=== PATIENT | female | born 1980 | race Caucasian/White ===

== ENCOUNTER 2024-01-27 14:28 | Emergency (ER) | payer MEDICAID, SELFPAY ==
[2024-01-27 14:29] VITALS: BMI 31.5
[2024-01-27 15:02] VITALS: BP 153/87; PULSE 94; RESP 20; TEMP 36.9; O2SAT 97
--- NOTE | 2024-01-27 15:29 | PD.EDPSYCH ---
ED Psych RME/HPI General Chief Complaint: Psychiatric Symptoms Stated Complaint: NEED MED REFILL Time Seen by Provider: 01/27/24 14:36 Arrival date/time: 01/27/24 14:28 43-year-old female with significant psychiatric history who was recently released from [facility] presents to the emergency department today requesting refill on her medication patient has a list of her medications and reports that she was just given a course of 7 days worth of medications which she finished yesterday patient reports that she was released January 18 patient reports she does not have an appointment for follow-up for at least another couple weeks Limitations: no limitations Related Data Previous Rx's ?Medication ?Instructions ?Recorded lithium carbonate 300 mg capsule 300 mg PO BID 30 days #60 caps 01/27/24 metformin 500 mg tablet 500 mg PO BID #60 tabs 01/27/24 olanzapine 10 mg tablet 10 mg PO QAM #30 tabs 01/27/24 olanzapine 20 mg tablet 20 mg PO QPM #30 tabs 01/27/24 pantoprazole 20 mg tablet,delayed 20 mg PO QDAY #30 tabs 01/27/24 release prazosin 5 mg capsule 5 mg PO QPM #30 caps 01/27/24 quetiapine 50 mg tablet 50 mg PO ONCE HS #30 tabs 01/27/24 Allergies Allergy/AdvReac Type Severity Reaction Status Date / Time Penicillins Allergy Unknown Verified 01/27/24 14:33 Review of Systems Review of Systems Systems Reviewed: All systems reviewed, normal except as documented Constitutional Constitutional: Reports system reviewed and no additional complaints, except as documented, Denies fever(s) and Denies headache(s) Eyes Eyes: Reports system reviewed and no additional complaints, except as documented and Denies blurry vision ENT Ears, Nose, Mouth, and Throat: Reports system reviewed and no additional complaints, except as documented, Denies headache(s), Denies nasal congestion and Denies nasal discharge Cardiovascular Cardiovascular: Reports system reviewed and no additional complaints, except as documented, Denies chest pain and Denies dyspnea Respiratory Respiratory: Reports system reviewed and no additional complaints, except as documented, Denies chest congestion, Denies cough and Denies dyspnea Gastrointestinal Gastrointestinal: Reports system reviewed and no additional complaints, except as documented and Denies abdominal pain Integumentary/Breasts Skin/Breast: Reports system reviewed and no additional complaints, except as documented and Denies rash Neurologic Neurologic: Reports system reviewed and no additional complaints, except as documented, Reports as per HPI, Denies confusion and Denies headache(s) Psychiatric Psychiatric: Reports system reviewed and no additional complaints, except as documented, Denies confusion, Denies homicidal ideation, Denies panic attacks, Denies suicidal ideation, Denies tactile hallucinations and Denies visual hallucinations Past Medical History Past Medical History CARDIAC: Positive Hypercholesterolemia; Negative Cardiac Disorders or Congestive Heart Failure RESPIRATORY: Positive Asthma; Negative Chronic Obstructive Pulmonary Disease (COPD) GENITOURINARY: Negative Renal Disease ENDOCRINE: Negative Diabetes Mellitus Type 1 or Diabetes Mellitus Type 2 HEMATOLOGIC: Negative Sickle Cell Disease PSYCHO/SOCIAL: Positive Schizophrenia, Bipolar Disorder, Depression and Anxiety Social History SMOKING STATUS: Current every day smoker ED Exam General Limitations: Present no limitations General appearance: Present alert and in no apparent distress Head Head exam: Present atraumatic, normocephalic and normal inspection Eye Eye exam: Present normal appearance, PERRL and EOMI; Absent conjunctival injection ENT ENT exam: Present normal exam, normal oropharynx and mucous membranes moist Neck Neck exam: Present normal inspection, full ROM and trachea midline Chest Chest inspection: Present normal inspection and symmetric chest wall rise Respiratory Respiratory exam: Present normal lung sounds bilaterally; Absent respiratory distress Cardiovascular Cardiovascular exam: Present regular rate, normal rhythm and normal heart sounds Abdominal Exam Abdominal exam: Present soft and normal bowel sounds; Absent distention, tenderness, guarding, rebound or rigidity Extremities Exam Extremities exam: Present normal inspection and full ROM Back Exam Back exam: Present normal inspection and full ROM Neurological Exam Neurological exam: Present alert, oriented X3, CN II-XII intact, normal gait and reflexes normal; Absent motor sensory deficit Psychiatric Psychiatric exam: Present normal affect and normal mood; Absent depressed, agitated, anxious, flat affect, manic, homicidal ideation or suicidal ideation Skin Skin exam: Present warm, dry, intact and normal color Course Quality Measures none Vital Signs Vital signs: Vital Signs Temperature 98.4 F 01/27/24 15:02 Pulse Rate 94 01/27/24 15:02 Respiratory Rate 20 01/27/24 15:02 Blood Pressure 153/87 H 01/27/24 15:02 Pulse Oximetry (%) 97 01/27/24 15:02 Oxygen Delivery Method Room Air 01/27/24 15:02 O2 saturation 97% room air within normal limits Psych MDM Narrative MDM Narrative:: 43-year-old female with significant psychiatric history who was recently released [facility] presents to the emergency department today requesting refill on her medication patient has a list of her medications and reports that she was just given a course of 7 days worth of medications which she finished yesterday patient reports that she was released January 18 patient reports she does not have an appointment for follow-up for at least another couple weeks Patient given her medication list I reviewed her medication list and refilled her medications as requested Patient instructed to follow-up with mental health and primary care doctor At time of discharge patient reports no suicidal homicidal ideations patient is thankful for the care Patient discharged home in no distress to follow-up with primary care doctor in the next 24 to 48 hours and for any worsening symptoms to return to the ER immediately Patient data External records reviewed:: [facility] previous records Clinical information provided by:: patient Social determinants that could affect healthcare access:: none Patient has the following chronic illnesses:: See history How is presenting disease/condition affected by chronic disease/condition?: caused by Evaluation data The following diagnostics were reviewed and interpreted by me:: other (specify) (N/A) Lab and/or radiology exams considered but not ordered:: Not indicated Interpretation Summary: Not indicated Medications / Prescriptions Medications or Prescriptions considered but not ordered:: Given Medication administrations:: Given Consultations Consultation(s) initiated? (list below): No Diagnosis Psych Differential Diagnosis: acute psychosis, chronic schizophrenia, suicidal ideation, bipolar disorder, drug-induced psychotic disorder, acute anxiety and other (Medication refill) Most likely diagnosis given after review of the tests above:: Medication refill Admission Indicated Admission indicated?: not indicated Admission Request Was there a request for admission?: No Disposition Plan Disposition Plan: Discharge Discharge Attestation Discharge Attestation: The patient and all family members were given an opportunity to ask questions and understood the discharge instructions. Discharge instructions specifically effects, indications for sooner follow up or return to the emergency department, and the expected course of current diagnosis. Patient condition: Stable Discharge Plan Plan Patient Disposition: HOME (Self Care) Disposition Comment: Stable Prescriptions/Referrals Prescriptions/Med Rec: New olanzapine 20 mg tablet 20 mg PO QPM Qty: 30 0RF olanzapine 10 mg tablet 10 mg PO QAM Qty: 30 0RF lithium carbonate 300 mg capsule 300 mg PO BID 30 Days Qty: 60 0RF metformin 500 mg tablet 500 mg PO BID Qty: 60 0RF pantoprazole 20 mg tablet,delayed release (DR/EC) 20 mg PO QDAY Qty: 30 0RF quetiapine 50 mg tablet 50 mg PO ONCE HS Qty: 30 0RF prazosin 5 mg capsule 5 mg PO QPM Qty: 30 0RF Referrals: Rosangela Castro PA-C [Primary Care Provider] - In 1 week Problem List Clinical Impression: Psychiatric disorder, Medication refill Patient/Caregiver Discharge Instructions Education Materials: [facility] Additional Instructions: Please follow up with your primary care doctor in the next 24-48hrs for any worsening symptoms return here immediately Print Language: Norwegian Stand Alone Forms: Tessie Award Info., Patient Portal Info Letter PA/CANDLE WRAPPING MACHINE OPERATOR Supervising Physician PA/CANDLE WRAPPING MACHINE OPERATOR Supervising Physician: Dr Canales
== END 2024-01-27 15:42 | disposition home or self-care (01) ==
PROVIDERS: Emergency Provider Emergency Medicine; PCP Physician Assistant
DX: F99 Mental disorder, not otherwise specified (principal); Z76.0 Encounter for issue of repeat prescription
CPT/HCPCS: 96127; 99281

== ENCOUNTER 2024-07-27 16:18 | Emergency (ER) | payer MEDICAID, SELFPAY ==
[2024-07-27 16:19] VITALS: BMI 35.6
[2024-07-27 17:05] VITALS: BP 133/85; PULSE 102; RESP 18; TEMP 37.1; O2SAT 97
--- NOTE | 2024-07-27 17:05 | XR_ITS ---
Examination: CT brain head without contrast. 2-D sagittal coronal reconstructions Date and time of exam:July 27, 2024 1825 hours Comparison December 31, 2023 INDICATIONS: Headaches blackouts sharp pain in head today CTDI: vol (mGy):2.6 DLP: (mGycm):1051 Technique: Multiple CT axial sections of the brain have been obtained, 5 mm slice thickness. Contrast has not been administered. 2-D sagittal, coronal reconstructions have been obtained Low dose protocols were performed. One or more of the following dose reduction techniques were used; automated exposure control, adjustment of the mA and/or KV according to patient size, use of iterative reconstruction technique. Findings: No significant ventricular enlargement. Intra-axial or extra-axial hemorrhage density is not seen. No mass effect or midline shift Basal cisterns are not remarkable. Fourth ventricle is midline. Cranial vault intact. Impression: Negative for acute hemorrhage, mass effect or midline shift Acute left maxillary sinusitis
--- NOTE | 2024-07-27 17:05 | EKG_ITS ---
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
--- NOTE | 2024-07-27 17:06 | PD.EDRME ---
Rapid Medical Screening Exam RME Arrival date/time: 07/27/24 16:18 43-year-old female presents Emergency Department today for complaint of upper abdominal pain, headache, dizziness and chest pain Chief Complaint: General Adult/Misc Complain Time Seen by Provider: 07/27/24 16:25 Vital signs: Vital Signs Temperature 98.7 F 07/27/24 17:05 Pulse Rate 102 H 07/27/24 17:05 Respiratory Rate 18 07/27/24 17:05 Blood Pressure 133/85 H 07/27/24 17:05 Pulse Oximetry (%) 97 07/27/24 17:05 Oxygen Delivery Method Room Air 07/27/24 17:05
[2024-07-27] MEDS: FAMOTIDINE 20 MG TABLET 40 MG PO (17:45)
[2024-07-27 18:17] LABS: Basophils # (Auto) 0.1 Thou/mm3 (0.0-0.2); Basophils % (Auto) 1 % (0-2.5); Eosinophils # (Auto) 0.6 Thou/mm3 (0.0-0.5); Eosinophils % (Auto) 4 % (0-10); Hematocrit 39.6 % (36.0-46.0); Hemoglobin 13.8 g/dL (12.0-16.0); Immature Granulocytes % (Auto) 0 % (0-0); Immature Granulocytes Auto 0.05 Thou/mm3 (0.00-0.00); Lymphocytes % (Auto) 29 % (10-50); Mean Corpuscular HGB Conc 34.8 g/dl (31.0-37.0); Mean Corpuscular Hemoglobin 30.3 pg (25.0-35.0); Mean Corpuscular Volume 87 fL (80-100); Monocytes # (Auto) 0.9 Thou/mm3 (0.0-0.8); Monocytes % (Auto) 7 % (0-12); Neutrophils # (Auto) 8.1 Thou/mm3 (1.8-7.7); Neutrophils % (Auto) 59 % (37-80); Nucleated Red Blood Cell % 0 /100 WBC (0); Platelet Count 421 Thou/mm3 (140-440); RDW Standard Deviation 42.3 fL (36.4-46.3); Red Blood Count 4.55 Miln/mm3 (4.00-5.20); White Blood Count 13.7 Thou/mm3 (3.6-11.0)
[2024-07-27 18:20] LABS: Alanine Aminotransferase 36 U/L (10-49); Albumin, Serum 4.4 gm/dL (3.5-5.0); Albumin/Globulin Ratio 1.5 (1.2-2.2); Alkaline Phosphatase 76 U/L (46-116); Anion Gap 6 (7-16); Aspartate Amino Transferase 28 U/L (0-34); BUN/Creatinine Ratio 8 Ratio (12-20); Bilirubin,Total 0.2 mg/dL (0.3-1.2); Blood Urea Nitrogen 7 mg/dL (9-23); Calcium 9.3 mg/dL (8.3-10.6); Calcium (Corrected) 9.3 mg/dL (8.5-10.1); Carbon Dioxide 24.1 mMol/L (20.0-31.0); Chloride 108 mMol/L (98-107); Creatinine (Component) 0.9 mg/dL (0.6-1.3); Estimated Creatinine Clearance 115.5 mL/min (>60); Globulin 2.9 gm/dL (2.3-3.5); Glucose 91 mg/dL (74-106); Lipase 32 U/L (12-53); Osmolality,Calculated 273 (275-295); Potassium 3.9 mMol/L (3.4-5.1); Sodium 138 mMol/L (136-145); Total Protein 7.3 gm/dL (5.7-8.2); Troponin I < 0.002 ng/mL (0.0-0.045); eGFR > 60 See Note
[2024-07-27 18:21] LABS: Collection Type, Urine Clean Catch; Squamous Epithelial Cell,Urine 0 /hpf (0-5)
[2024-07-27 18:32] LABS: Bilirubin,Urine Negative (Negative); Blood,Urine Negative (Negative); Clarity,Urine Clear (Clear/Hazy); Color,Urine Colorless (Lt Yel-Yel); Culture Indicated,Urine Not Indicated; Glucose, Urine Negative (Negative); Ketones,Urine Negative (Negative); Leukocyte Esterase,Urine Negative (Negative); Nitrite,Urine Negative (Negative); PH,Urine 6.5 (5.0-7.0); Protein,Urine Negative (Neg - Trace); RBC,Urine 1 /hpf (0-3); Specific Gravity,Urine 1.008 (1.001-1.035); Urobilinogen,Urine Negative mg/dL (0.0-1.0); WBC,Urine 1 /hpf (0-5)
[2024-07-27 18:37] LABS: HCG Qualitative,Urine Negative
[2024-07-27 18:40] LABS: Amphetamine/Methamp Scrn,U Negative (Negative); Barbiturate Screen,Urine Negative (Negative); Benzodiazepines Screen,Urine Negative (Negative); Benzoylecgonine Screen, Ur Negative (Negative); Fentanyl Screen,Urine Negative (Negative); Opiate Screen,Urine Negative (Negative); THC Screen,Urine Negative (Negative)
--- NOTE | 2024-07-27 20:37 | PD.EDHA ---
ED Headache RME/HPI General Chief Complaint: General Adult/Misc Complain Stated Complaint: BAD INDIGESTION; BLACKING OUT, SHARP PAIN IN HEAD Time Seen by Provider: 07/27/24 16:25 Arrival date/time: 07/27/24 16:18 RME / HPI RME / HPI Narrative: 07/27/24 16:18 43-year-old female presents Emergency Department today for complaint of upper abdominal pain, headache, dizziness and chest pain DR. JASON MAIN ED EVALUATION: 43 y/o female with Hx of Vertigo, Hypercholesterolemia, Schizophrenia, Bipolar Disorder, Depression and Anxiety presents to ED c/o intermittent sharp head pain, pressure behind the eyes, and blacking out x 6 months. She states that her eyesight goes black and dark. Her PCP has been treating her with Reglan with no relief. Patient also reports almost drowning today due to the blacking out. Denies tunnel vision, drug use, and alcohol consumption. Patient reports an allergy to Penicillin. No other concerns or complaints expressed at this time. Related Data Previous Rx's ?Medication ?Instructions ?Recorded metformin 500 mg tablet 500 mg PO BID #60 tabs 01/27/24 olanzapine 10 mg tablet 10 mg PO QAM #30 tabs 01/27/24 olanzapine 20 mg tablet 20 mg PO QPM #30 tabs 01/27/24 pantoprazole 20 mg tablet,delayed 20 mg PO QDAY #30 tabs 01/27/24 release prazosin 5 mg capsule 5 mg PO QPM #30 caps 01/27/24 quetiapine 50 mg tablet 50 mg PO ONCE HS #30 tabs 01/27/24 Allergies Allergy/AdvReac Type Severity Reaction Status Date / Time Penicillins Allergy Unknown Verified 07/27/24 16:22 Review of Systems Review of Systems Systems Reviewed: All systems reviewed, normal except as documented Past Medical History Past Medical History CARDIAC: Positive Hypercholesterolemia RESPIRATORY: Positive Asthma PSYCHO/SOCIAL: Positive Schizophrenia, Bipolar Disorder, Depression and Anxiety Social History SMOKING STATUS: Current every day smoker ED Exam Narrative Physical exam: GEN. APPEARANCE: The patient is alert awake oriented X-3 in no distress, lying down comfortably, does not look ill/toxic. Patient has good eye contact. Patient is cooperative. VITALS: All vitals were reviewed and the pulse ox is 97% on room air which is normal according to my interpretation. HEENT: Normocephalic, atraumatic. Pupils are equal and reactive. Occular movement intact and painless. Right eye pressure of 21. Left eye pressure of 18. Cornea not hazy, no conjunctival injection. Oral mucosa is moist. Patent Nares NECK: Supple, nontender, no thyromegaly, no meningismus, no JVD CHEST: Symmetrical, atraumatic, and with equal expansion , Nontender on palpation no deformity and no crepitus. CARDIOVASCULAR: Heart regular rhythm no murmur or gallop rub or extra beats. LUNGS: Clear to auscultation bilaterally with symmetrical chest rise. No laboring tachypnea or wheezing. No intercostal subcostal retraction. No rales and no rhonchi. ABDOMEN: Soft, flat, nontender to palpation, no guarding or rebound tenderness. There are no abnormal masses palpated. Active and normal bowel sounds. EXTREMITIES: Nontender. No edema. No cyanosis. Patient is able to move all 4 extremities well, with full ROM and good CSM. SKIN: Warm and dry, no jaundice or rashes noted. NEURO: Patient is WALKER x 4, Cranial nerves II through XII grossly intact. There is no focal neurologic deficits noted. GCS is 15, PNS and COLLAR STAY FUSER TENDER appear grossly intact. PSYCHIATRIC: Patient is in normal mood and affect. Course Quality Measures none Orders Category Date Time Status EKG (ED ONLY) *Do not use* NOW Care 07/27/24 17:[address] head/brain wo con Stat Exams 07/27/24 17:05 Completed EKG (ED Only) Stat Exams 07/27/24 17:05 Draft CBC Stat Lab 07/27/24 17:34 Completed Comprehensive Metabolic Panel Stat Lab 07/27/24 17:34 Completed Creatine Kinase Stat Lab 07/27/24 17:34 Completed Drug Screen,Urine Stat Lab 07/27/24 18:00 Completed HCG Qualitative,Urine Stat Lab 07/27/24 18:00 Completed Lipase Stat Lab 07/27/24 17:34 Completed Troponin I Stat Lab 07/27/24 17:34 Completed UA, C/S IF [Urinalysis, C/S if Indicated] Stat Lab 07/27/24 18:00 Completed Famotidine [Pepcid] Med 07/27/24 17:37 Discontinued 40 mg PO X1 ONE Ringers Lactated 1000 ml [Lactated Ringers] 1,000 ml Med 07/27/24 20:44 Discontinued IV 999 mls/hr Reevaluation(s) Reevaluation #1: Right eye pressure 21. Left eye pressure 18. Time: 23:23 Vital Signs Vital signs: Vital Signs Temperature 98.7 F 07/27/24 17:05 Pulse Rate 102 H 07/27/24 17:05 Respiratory Rate 18 07/27/24 17:05 Blood Pressure 133/85 H 07/27/24 17:05 Pulse Oximetry (%) 97 07/27/24 17:05 Oxygen Delivery Method Room Air 07/27/24 17:05 Headache MDM Narrative MDM Narrative:: Scribe Attestation: Pao Sands, am scribing for and in the presence of Dr. Jason. Provider Notation: Although this document has been carefully reviewed, there may still be some phonetic and other typographical errors.? These errors are purely grammatical due to imperfections in the software program and should not be construed in any way to? compromise the substance of the patient's medical care during this visit. Patient data External records reviewed:: [facility] previous records (Reviewed prior ED records from 01/27/24. Patient was seen for Medication refill.) Clinical information provided by:: patient Social determinants that could affect healthcare access:: mental health Patient has the following chronic illnesses:: Hypercholesterolemia, Asthma, Schizophrenia, Bipolar Disorder, Depression and Anxiety How is presenting disease/condition affected by chronic disease/condition?: exacerbated by Evaluation data The following diagnostics were reviewed and interpreted by me:: lab results, radiology exam(s) and EKG tracing(s) (EKG done at 17:07, sinus rhythm, rate of 91, normal intervals, normal axis, no acute ischemia.) Lab and/or radiology exams considered but not ordered:: None Interpretation Summary: RADIOLOGY Haed CT: Findings: No significant ventricular enlargement. Intra-axial or extra-axial hemorrhage density is not seen. No mass effect or midline shift Basal cisterns are not remarkable. Fourth ventricle is midline. Cranial vault intact. Impression: Negative for acute hemorrhage, mass effect or midline shift Acute left maxillary sinusitis Medications / Prescriptions Medications or Prescriptions considered but not ordered:: None Medication administrations:: Medication Administration History Discontinued Medications Famotidine (Famotidine 20 Mg Tablet) 40 mg PO X1 ONE Stop: 07/27/24 17:38 Last Admin: 07/27/24 17:45 Dose: 40 mg Documented By: LISA Lactated Ringer's (Lactated Ringers) 1,000 mls @ 999 mls/hr IV .Q1H1M ONE Stop: 07/27/24 21:44 Last Infusion: 07/27/24 22:06 Dose: Infused Documented By: Admin: 07/27/24 21:01 Dose: 999 mls/hr Documented By: REGI See above if any Consultations Consultation(s) initiated? (list below): No Diagnosis Differential diagnosis headache: migraine, tension headache, subarachnoid hemorrhage, headache, meningitis, sinusitis and postconcussion syndrome Most likely diagnosis given after review of the tests above:: Syncope, Headache Admission Indicated Admission indicated?: not indicated Explain why admission is indicated or not indicated:: Patient does not meet admission criteria. Admission Request Was there a request for admission?: No Disposition Plan Disposition Plan: Discharge Discharge Attestation Discharge Attestation: The patient and all family members were given an opportunity to ask questions and understood the discharge instructions. Discharge instructions specifically effects, indications for sooner follow up or return to the emergency department, and the expected course of current diagnosis. Patient condition: Stable Discharge Plan Plan Patient Disposition: HOME (Self Care) Prescriptions/Referrals Prescriptions/Med Rec: No Action olanzapine 20 mg tablet 20 mg PO QPM Qty: 30 0RF olanzapine 10 mg tablet 10 mg PO QAM Qty: 30 0RF metformin 500 mg tablet 500 mg PO BID Qty: 60 0RF pantoprazole 20 mg tablet,delayed release (DR/EC) 20 mg PO QDAY Qty: 30 0RF quetiapine 50 mg tablet 50 mg PO ONCE HS Qty: 30 0RF prazosin 5 mg capsule 5 mg PO QPM Qty: 30 0RF Referrals: Rosangela Castro PA-C [Primary Care Provider] - In 1 week Mounika Jason MD [Emergency Provider] - In 1 week Problem List Clinical Impression: Headache, Syncope Patient/Caregiver Discharge Instructions Other Activity Instructions:: please follow up with your primary care doctor request an appointment to see an automatic beading lathe operator as well as a neurologist. Your intraocular pressures today were normal. CT scan and labs were reassuring. Education Materials: Causes of Syncope Print Language: Czech Stand Alone Forms: Tessie Award Info., Patient Portal Info Letter
[2024-07-27] MEDS: RINGERS LACTATED 1000 ML 1,000 ML 999 ML IV (21:01)
[2024-07-27 21:15] LABS: Creatine Kinase 156 U/L (34-171)
== END 2024-07-27 23:48 | disposition home or self-care (01) ==
PROVIDERS: Nurse Practitioner Primary Care; Emergency Provider Emergency Medicine; PCP Physician Assistant
DX: R51.9 Headache, unspecified (principal); F20.9 Schizophrenia, unspecified; E78.00 Pure hypercholesterolemia, unspecified; F31.9 Bipolar disorder, unspecified; J01.00 Acute maxillary sinusitis, unspecified
CPT/HCPCS: 36415; 70450; 80053; 80307; 81001; 81025; 82550; 83690; 84484; 85025; 93005; 96360; 99284; J7120; A9270

== ENCOUNTER 2024-08-06 14:43 | Emergency (ER) | payer MEDICAID, SELFPAY ==
[2024-08-06 14:45] VITALS: BP 101/57; PULSE 113; RESP 16; RESP 17; TEMP 36.7; O2SAT 93; O2SAT 97; BMI 35.2
--- NOTE | 2024-08-06 15:26 | EKG_ITS ---
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
--- NOTE | 2024-08-06 16:02 | XR_ITS ---
Examination: AP chest single view TECHNIQUE: AP portable upright chest single view Date and time: August 06, 2024, 1608 hours, comparison March 06, 2023. INDICATIONS: Chest pain and shortness of breath today. FINDINGS: Early bibasilar pneumonia. Subsegmental atelectasis right base. Normal heart size. No pulmonary edema IMPRESSION: Early bibasilar pneumonia
--- NOTE | 2024-08-06 16:02 | PD.EDCHEST ---
ED Chest Pain RME/HPI General Chief Complaint: Chest Pain Stated Complaint: CHEST PAIN Time Seen by Provider: 08/06/24 15:27 Arrival date/time: 08/06/24 14:43 RME / HPI RME / HPI narrative: 43-year-old female patient came in for evaluation regarding substernal chest pain. Onset of symptoms about 3 hours prior to ER visit as sudden onset of substernal chest pain, described as sharp pain, severity moderate. Denies any vomiting denies any shortness of breath denies any cough denies any fever denies any other complaints. Patient went out the house and smoke half of cigarette however the pain is still not letting away. No medication was taken prior to arrival. Related Data Previous Rx's ?Medication ?Instructions ?Recorded metformin 500 mg tablet 500 mg PO BID #60 tabs 01/27/24 olanzapine 10 mg tablet 10 mg PO QAM #30 tabs 01/27/24 olanzapine 20 mg tablet 20 mg PO QPM #30 tabs 01/27/24 pantoprazole 20 mg tablet,delayed 20 mg PO QDAY #30 tabs 01/27/24 release prazosin 5 mg capsule 5 mg PO QPM #30 caps 01/27/24 quetiapine 50 mg tablet 50 mg PO ONCE HS #30 tabs 01/27/24 amoxicillin 875 mg-potassium 1 tab PO BID #14 tabs 08/06/24 clavulanate 125 mg tablet azithromycin 250 mg tablet 250 mg PO QDAY 4 days #4 tabs 08/06/24 (Zithromax) Allergies Allergy/AdvReac Type Severity Reaction Status Date / Time Penicillins Allergy Unknown Verified 08/06/24 15:26 Review of Systems Review of Systems Narrative Review of Systems: Review of system reviewed and within normal limits except mentioned in HPI ED Exam Narrative Physical exam: VITAL SIGNS: Reviewed. GENERAL APPEARANCE: Alert and interactive, follows commands, no acute distress, HEAD AND FACE: Non-traumatic. ENT: PERRL, pink conjunctivitis, eyelid no trauma, Mucous membrane moist. NECK: Supple, nontender, no nuchal rigidity. CHEST: Substernal tenderness, no crepitus, no paradoxical movement, no retractions. LUNGS: Clear, well ventilated, symmetric, no rales, no wheezing, no ronchi, no stridor, good breath sounds bilaterally. HEART: Regular rate, regular rhythm, no murmur, no gallops. ABDOMEN: Soft, positive bowel sounds, nondistended, no guarding, nontender, no rebound, no masses, RECTAL: Deferred. GENITAL: Deferred. NEUROLOGICAL: Gross motor function intact sensory function intact, Appropriate for age. MUSCULOSKELETAL: low back nontender, full range of motion. EXTREMITIES: Nontender, full range of motion. SKIN: Color pink, dry, no rash, no lacerations, no abrasions, no contusions. LYMPHATICS: Deferred. Course Quality Measures none Orders Category Date Time Status EKG (ED ONLY) *Do not use* NOW Care 08/06/24 15:26 Completed EKG (ED Only) Stat Exams 08/06/24 15:26 Draft XR chest 1V Stat Exams 08/06/24 16:02 Completed Alcohol, Urine Stat Lab 08/06/24 16:15 Completed CBC Stat Lab 08/06/24 16:06 Completed Comprehensive Metabolic Panel Stat Lab 08/06/24 16:06 Completed Drug Screen,Urine Stat Lab 08/06/24 16:15 Completed Partial Thromboplastin Time Stat Lab 08/06/24 16:06 Completed Prothrombin Time with INR Stat Lab 08/06/24 16:06 Completed Troponin I Stat Lab 08/06/24 16:06 Completed Urinalysis, C/S if Indicated Stat Lab 08/06/24 16:15 Completed Azithromycin Po [Zithromax PO] Med 08/06/24 17:52 Discontinued 500 mg PO X1 ONE mg Hyd/Al Hyd/Elana Susp [Maalox Susp] Med 08/06/24 16:02 Discontinued 30 ml PO X1 ONE Vital Signs Vital signs: Vital Signs Temperature 98.1 F 08/06/24 14:45 Respiratory Rate 17 08/06/24 14:45 Blood Pressure 101/57 L 08/06/24 14:45 Pulse Oximetry (%) 97 08/06/24 14:45 Oxygen Delivery Method Nasal Cannula 08/06/24 14:45 Chest Pain MDM Narrative MDM Narrative:: 43-year-old female patient came in for evaluation regarding substernal chest pain. Onset of symptoms about 3 hours prior to ER visit as sudden onset of substernal chest pain, described as sharp pain, severity moderate. Denies any vomiting denies any shortness of breath denies any cough denies any fever denies any other complaints. Patient went out the house and smoke half of cigarette however the pain is still not letting away. No medication was taken prior to arrival. EKG as interpreted by me shows sinus rhythm, ventricular rate of 87 bpm, [place] interval was omitted MS, ST segment elevation depression noted. Patient's workup including cardiac workup all came back normal. Chest x-ray showed pneumonia. Patient received Zithromax in the emergency room. Patient appears nontoxic and hemodynamically stable .Decision to discharge the patient. The patient/family was given an opportunity to ask questions and understood their discharge instructions. Discharge instructions specifically included follow up provider and time frame, current and/or new medications and possible side effects, indications for sooner follow up or return to the emergency department, and the expected course of current diagnosis. Patient reports feeling better as well and giving evidence of significant clinical improvement, I believe patient is now a candidate for discharge. Patient data External records reviewed:: None Clinical information provided by:: patient Social determinants that could affect healthcare access:: none Patient has the following chronic illnesses:: Diabetes mellitus chronic smoker How is presenting disease/condition affected by chronic disease/condition?: caused by Evaluation data The following diagnostics were reviewed and interpreted by me:: lab results, radiology exam(s) and EKG tracing(s) Lab and/or radiology exams considered but not ordered:: None Interpretation Summary: see results MDM Medications / Prescriptions Medications or Prescriptions considered but not ordered:: None Medication administrations:: Medication Administration History Discontinued Medications Al Hydrox/Mg Hydrox/Simethicone (Mg Hyd/Al Hyd/Elana (Maalox Reg) Susp 30 Ml Udc) 30 ml PO X1 ONE Stop: 08/06/24 16:03 Last Admin: 08/06/24 16:14 Dose: 30 ml Documented By: MARILOU Azithromycin (Azithromycin 250 Mg Tablet) 500 mg PO X1 ONE Stop: 08/06/24 17:53 Maalox and Zithromax Consultations Consultation(s) initiated? (list below): No Diagnosis Chest Pain Differential Diagnosis: pneumothorax, chest pain and other (Pneumonia) Most likely diagnosis given after review of the tests above:: Chest pain, pneumonia Admission Indicated Admission indicated?: not indicated Admission Request Was there a request for admission?: No Disposition Plan Disposition Plan: Discharge Discharge Attestation Discharge Attestation: The patient was given an opportunity to ask questions and understood the discharge instructions. Discharge instructions specifically effects, indications for sooner follow up or return to the emergency department, and the expected course of current diagnosis. Patient condition: Stable Discharge Plan Plan Patient Disposition: HOME (Self Care) Discharge Disposition comment: Stable Prescriptions/Referrals Prescriptions/Med Rec: New azithromycin [Zithromax] 250 mg tablet 250 mg PO QDAY 4 Days Qty: 4 0RF Rx Instructions: start on day 2 of therapy amoxicillin-pot clavulanate 875-125 mg tablet 1 tab PO BID Qty: 14 0RF No Action olanzapine 20 mg tablet 20 mg PO QPM Qty: 30 0RF olanzapine 10 mg tablet 10 mg PO QAM Qty: 30 0RF metformin 500 mg tablet 500 mg PO BID Qty: 60 0RF pantoprazole 20 mg tablet,delayed release (DR/EC) 20 mg PO QDAY Qty: 30 0RF quetiapine 50 mg tablet 50 mg PO ONCE HS Qty: 30 0RF prazosin 5 mg capsule 5 mg PO QPM Qty: 30 0RF Referrals: Rosangela Castro PA-C [Primary Care Provider] - In 1 week Problem List Clinical Impression: Chest pain, Pneumonia Patient/Caregiver Discharge Instructions Discharge Activity: activity as tolerated Education Materials: ED Pneumonia (Adult) Additional Instructions: Thank you for the opportunity for serving you today. You are stable for discharged . You are advised to: Follow-up with your PCP in 1 to 2 days Return to ED for worsening of symptoms Increase oral fluids Take medication as prescribed Please try to stop smoking. Print Language: Malagasy Stand Alone Forms: Tessie Award Info., Patient Portal Info Letter NOE/ESTEBAN Supervising Physician NOE/ESTEBAN Supervising Physician: MD Carmen
[2024-08-06 16:14] LABS: Basophils # (Auto) 0.1 Thou/mm3 (0.0-0.2); Basophils % (Auto) 1 % (0-2.5); Eosinophils # (Auto) 0.6 Thou/mm3 (0.0-0.5); Eosinophils % (Auto) 5 % (0-10); Hematocrit 38.5 % (36.0-46.0); Immature Granulocytes % (Auto) 0 % (0-0); Immature Granulocytes Auto 0.04 Thou/mm3 (0.00-0.00); Lymphocytes # (Auto) 3.7 Thou/mm3 (1.0-4.8); Lymphocytes % (Auto) 32 % (10-50); Mean Corpuscular HGB Conc 33.8 g/dl (31.0-37.0); Mean Corpuscular Volume 89 fL (80-100); Monocytes # (Auto) 0.8 Thou/mm3 (0.0-0.8); Monocytes % (Auto) 7 % (0-12); Neutrophils # (Auto) 6.6 Thou/mm3 (1.8-7.7); Neutrophils % (Auto) 56 % (37-80); Nucleated Red Blood Cell % 0 /100 WBC (0); Platelet Count 382 Thou/mm3 (140-440); RDW Standard Deviation 42.5 fL (36.4-46.3); Red Blood Count 4.34 Miln/mm3 (4.00-5.20); White Blood Count 11.9 Thou/mm3 (3.6-11.0)
[2024-08-06] MEDS: MG HYD/AL HYD/SIME (Maalox Reg) SUSP 30 ML UDC PO (16:14)
[2024-08-06 16:36] LABS: Collection Type, Urine Clean Catch; Squamous Epithelial Cell,Urine 0 /hpf (0-5)
[2024-08-06 16:39] LABS: Alanine Aminotransferase 36 U/L (10-49); Albumin, Serum 3.9 gm/dL (3.5-5.0); Albumin/Globulin Ratio 1.3 (1.2-2.2); Alkaline Phosphatase 67 U/L (46-116); Anion Gap 6 (7-16); Aspartate Amino Transferase 25 U/L (0-34); BUN/Creatinine Ratio 6 Ratio (12-20); Bilirubin,Total 0.3 mg/dL (0.3-1.2); Blood Urea Nitrogen < 5 mg/dL (9-23); Calcium (Corrected) 9.1 mg/dL (8.5-10.1); Carbon Dioxide 23.6 mMol/L (20.0-31.0); Chloride 109 mMol/L (98-107); Creatinine (Component) 0.9 mg/dL (0.6-1.3); Estimated Creatinine Clearance 114.8 mL/min (>60); Glucose 110 mg/dL (74-106); Osmolality,Calculated 275 (275-295); Potassium 3.9 mMol/L (3.4-5.1); Sodium 139 mMol/L (136-145); Total Protein 6.9 gm/dL (5.7-8.2); Troponin I < 0.002 ng/mL (0.0-0.045); eGFR > 60 See Note
[2024-08-06 16:41] VITALS: BP 138/109; RESP 17; TEMP 36.4; O2SAT 98
[2024-08-06 16:45] LABS: Bacteria,Urine Rare; Bilirubin,Urine Negative (Negative); Blood,Urine Negative (Negative); Clarity,Urine Clear (Clear/Hazy); Color,Urine Lt-Yellow (Lt Yel-Yel); Culture Indicated,Urine Not Indicated; Glucose, Urine Negative (Negative); Ketones,Urine Negative (Negative); Leukocyte Esterase,Urine Negative (Negative); Nitrite,Urine Negative (Negative); PH,Urine 6.5 (5.0-7.0); Protein,Urine Negative (Neg - Trace); RBC,Urine 6 /hpf (0-3); Specific Gravity,Urine 1.006 (1.001-1.035); Urobilinogen,Urine Negative mg/dL (0.0-1.0); WBC,Urine 9 /hpf (0-5)
[2024-08-06 16:46] LABS: Partial Thromboplastin Time 32.3 Seconds (22.0-36.0); Prothrombin Time 11.3 Seconds (9.0-12.2)
[2024-08-06 17:05] LABS: Alcohol, Urine Negative (Negative); Amphetamine/Methamp Scrn,U Negative (Negative); Barbiturate Screen,Urine Negative (Negative); Benzodiazepines Screen,Urine Negative (Negative); Benzoylecgonine Screen, Ur Negative (Negative); Fentanyl Screen,Urine Negative (Negative); Opiate Screen,Urine Negative (Negative); THC Screen,Urine Negative (Negative)
[2024-08-06] MEDS: AZITHROMYCIN 250 MG TABLET 500 MG PO (18:10)
[2024-08-06 18:14] VITALS: BP 119/84; PULSE 87; RESP 16; TEMP 36.7; O2SAT 95
--- NOTE | 2024-08-06 18:33 | PC.CC ---
RENETTA Quiñonez was consulted by LISA Prado to arrange transportation for patient. ANGELESW made face to face contact with patient and arranged transportation to [facility] for the patient with [facility].
== END 2024-08-06 18:14 | disposition home or self-care (01) ==
PROVIDERS: Nurse Practitioner Family; Emergency Provider Emergency Medicine; PCP Physician Assistant
DX: J18.9 Pneumonia, unspecified organism (principal); F17.210 Nicotine dependence, cigarettes, uncomplicated
CPT/HCPCS: 36415; 71045; 80053; 80307; 80320; 81001; 84484; 85025; 85610; 85730; 93005; 99283; A9270; G0480

== ENCOUNTER 2024-08-10 14:01 | Emergency (ER) | payer MEDICAID, SELFPAY ==
[2024-08-10 14:02] VITALS: BP 138/84; PULSE 78; RESP 18; O2SAT 94
[2024-08-10 14:06] VITALS: PULSE 88; RESP 22; O2SAT 98; BMI 35.9
--- NOTE | 2024-08-10 15:48 | EDNOTE_ITS ---
<Statement entered by Angeline Morales MD - 08/20/24 19:40> As co-signing physician, I was present and available for consult prn. I concur with the plan and care as documented by the midlevel provider. ED General RME/HPI General Stated complaint: SHAKY Time Seen by Provider: 08/10/24 14:57 Source: patient Arrival date/time: 08/10/24 14:01 43-year-old female with a history of type 2 diabetes and mental health disorders presents to the emergency room with a chief complaint of shakiness. Patient states she took her antibiotics 1 hour ago and began feeling like this. Mode of arrival: ambulatory Limitations: no limitations Related Data Previous Rx's ?Medication ?Instructions ?Recorded metformin 500 mg tablet 500 mg PO BID #60 tabs 01/26 olanzapine 10 mg tablet 10 mg PO QAM #30 tabs olanzapine 20 mg tablet 20 mg PO QPM #30 tabs pantoprazole 20 mg tablet,delayed 20 mg PO QDAY #30 ta bs 01/27/24 release prazosin 5 mg capsule 5 mg PO QPM #30 caps 4 quetiapine 50 mg tablet 50 mg PO ONCE HS #30 tabs amoxicillin 875 mg-potassium 1 tab PO BID #14 tabs clavulanate 125 mg tablet Allergies Allergy/AdvReac Type Severity Reaction Status Date / Time Penicillins Allergy Unknown Verified 08/10/24 14:06 Review of Systems Review of Systems Systems Reviewed: All systems reviewed, normal except as documented Constitutional Constitutional: Reports system reviewed and no additional complaints, except as documented, Denies fatigue, Denies fever(s), Denies headache(s) and Denies weakness Eyes Eyes: Reports system reviewed and no additional complaints, except as documented, Denies blurry vision and Denies change in vision ENT Ears, Nose, Mouth, and Throat: Reports system reviewed and no additional complaints, except as documented, Denies otalgia, Denies headache(s), Denies nasal congestion, Denies throat swelling and Denies vertigo Cardiovascular Cardiovascular: Reports system reviewed and no additional complaints, except as documented, Denies chest pain, Denies dyspnea and Denies dyspnea on exertion Respiratory Respiratory: Reports system reviewed and no additional complaints, except as documented, Denies chest congestion, Denies cough, Denies dyspnea, Denies dyspnea on exertion and Denies wheezing Gastrointestinal Gastrointestinal: Reports system reviewed and no additional complaints, except as documented, Denies abdominal pain, Denies cramping, Denies nausea and Denies vomiting Genitourinary Genitourinary: Reports system reviewed and no additional complaints, except as documented Musculoskeletal Musculoskeletal: Reports system reviewed and no additional complaints, except as documented and Denies back pain Integumentary/Breasts Skin/Breast: Reports system reviewed and no additional complaints, except as documented and Denies wounds Neurologic Neurologic: Reports system reviewed and no additional complaints, except as documented, Denies confusion, Denies headache(s), Denies lack of coordination, Denies vertigo and Denies weakness Psychiatric Psychiatric: Reports system reviewed and no additional complaints, except as documented, Denies anxiety, Denies confusion, Denies depression, Denies paranoia, Denies suicidal ideation and Denies tactile hallucinations Endocrine Endocrine: Reports system reviewed and no additional complaints, except as documented and Denies fatigue Hematologic/Lymphatic Hematologic/Lymphatic: Reports system reviewed and no additional complaints, except as documented and Denies lymphadenopathy Allergic/Immunologic Allergic/Immunologic: Reports system reviewed and no additional complaints, except as documented, Denies throat swelling, Denies urticaria and Denies wheezing ED Exam General Limitations: Present no limitations General appearance: Present alert and in no apparent distress Head Head exam: Present atraumatic Eye Eye exam: Present normal appearance, PERRL and EOMI ENT ENT exam: Present normal exam, normal oropharynx and mucous membranes moist Neck Neck exam: Present normal inspection, full ROM and trachea midline Chest Chest inspection: Present normal inspection and symmetric chest wall rise Respiratory Respiratory exam: Present normal lung sounds bilaterally Cardiovascular Cardiovascular exam: Present regular rate, normal rhythm and normal heart sounds Abdominal Exam Abdominal exam: Present soft and normal bowel sounds Extremities Exam Extremities exam: Present normal inspection and full ROM Back Exam Back exam: Present normal inspection and full ROM Neurological Exam Neurological exam: Present alert, oriented X3 and CN II-XII intact Psychiatric Psychiatric exam: Present normal affect and normal mood Skin Skin exam: Present warm, dry, intact and normal color Course Quality Measures none Vital Signs Vital signs: Vital Signs Pulse Rate 78 08/10/24 14:02 Respiratory Rate 18 08/10/24 14:02 Blood Pressure 138/84 H 08/10/24 14:02 Pulse Oximetry (%) 94 L 08/10/24 14:02 Oxygen Delivery Method Room Air 08/10/24 14:02 Discharge Plan Plan Patient Disposition: HOME (Self Care) Discharge Disposition comment: Stable Prescriptions/Referrals Prescriptions/Med Rec: No Action olanzapine 20 mg tablet 20 mg PO QPM Qty: 30 0RF olanzapine 10 mg tablet 10 mg PO QAM Qty: 30 0RF metformin 500 mg tablet 500 mg PO BID Qty: 60 0RF pantoprazole 20 mg tablet,delayed release (DR/EC) 20 mg PO QDAY Qty: 30 0RF quetiapine 50 mg tablet 50 mg PO ONCE HS Qty: 30 0RF prazosin 5 mg capsule 5 mg PO QPM Qty: 30 0RF amoxicillin-pot clavulanate 875-125 mg tablet 1 tab PO BID Qty: 14 0RF Problem List Clinical Impression: Allergic reaction caused by a drug Patient/Caregiver Discharge Instructions Education Materials: ED Medicine Reaction: Allergic Additional Instructions: Please stop taking your Augmentin medication as this is a penicillin and caused your reaction Please continue to take your azithromycin antibiotics For any evidence of worsening signs or symptoms return to the emergency room imm ediately Print Language: [place] Islander Stand Alone Forms: [employer] Info., Patient Portal Info Letter PA/SHANK RANDER Supervising Physician PA/SHANK RANDER Supervising Physician: Dr. MORALES [facility] Narrative [facility] hospital course: 43-year-old female with a history of type 2 diabetes and mental health disorders presents to the emergency room with a chief complaint of shakiness. Patient states she took her antibiotics 1 hour ago and began feeling like this. Patient is hemodynamically stable and in no apparent distress. Patient states she is feeling a lot better. I reviewed the patient's medications that she took and she took Augmentin and azithromycin. Patient has an allergy to penicillins and I spoke to her and told her that this is probably the cause of her symptoms. I spoke to the patient and told her to stop taking the Augmentin medication and to continue to take the azithromycin. Patient also states she is feeling better and ready for discharge Patient was discharged and educated to follow-up with primary care provider in the next 24 to 48 hours and return to the emergency room for any evidence of worsening signs or symptoms Clinical Information Provided by none Medical Records Reviewed None Meds/Rx Considered, not Ordered None Labs/Rad/Tests considered, not Ordered None Chronic Illness/Social Conditions which may negatively complicate care or outcome(s)-explain: None or not applicable EKG EKG not done Lab Interpretation Labs: none Imaging Imaging interpretation: none Medication Administration(s) none Diagnosis Differential dx and/or dx ruled out: Allergic reaction to medication Most likely dx, and/or detailed dx discussion: Allergic reaction to medication Dispositon Disposition: Discharge Home
== END 2024-08-10 16:20 | disposition home or self-care (01) ==
LOC: SERX 16:29
PROVIDERS: Emergency Provider Emergency Medicine
DX: R25.1 Tremor, unspecified (principal); T50.905A Adverse effect of unspecified drugs, medicaments and biological substances, initial encounter; E11.9 Type 2 diabetes mellitus without complications
CPT/HCPCS: 99281

== ENCOUNTER 2024-09-21 14:53 | Emergency (ER) | payer MEDICAID, SELFPAY ==
[2024-09-21 14:55] VITALS: PULSE 90; RESP 18; O2SAT 94; BMI 33.5
--- NOTE | 2024-09-21 14:55 | EKG_ITS ---
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
[2024-09-21 15:00] VITALS: BP 108/75; PULSE 94; RESP 20; TEMP 36.6; O2SAT 94
--- NOTE | 2024-09-21 15:28 | XR_ITS ---
Examination: AP chest single view Technique one AP portable semiupright chest single view Date and time: September 21, 2024, 1540 hours INDICATIONS: Fever nausea chest pain since last night FINDINGS: Normal heart size Minor atelectasis in the lower lung zones. No pneumonia or pulmonary edema IMPRESSION: No pneumonia or pulmonary edema
[2024-09-21] MEDS: SODIUM CHLORIDE 0.9% 1000 ML 1,000 ML 999 ML IV (15:35)
[2024-09-21] MEDS: ONDANSETRON INJ 2 MG/ML INJ 2 ML 4 MG IVP (15:36)
[2024-09-21 15:59] LABS: Basophils # (Auto) 0.1 Thou/mm3 (0.0-0.2); Basophils % (Auto) 1 % (0-2.5); Eosinophils # (Auto) 0.4 Thou/mm3 (0.0-0.5); Eosinophils % (Auto) 5 % (0-10); Hematocrit 38.8 % (36.0-46.0); Hemoglobin 13.1 g/dL (12.0-16.0); Immature Granulocytes Auto 0.02 Thou/mm3 (0.00-0.00); Lymphocytes # (Auto) 2.8 Thou/mm3 (1.0-4.8); Lymphocytes % (Auto) 30 % (10-50); Mean Corpuscular HGB Conc 33.8 g/dl (31.0-37.0); Mean Corpuscular Hemoglobin 30.3 pg (25.0-35.0); Mean Corpuscular Volume 90 fL (80-100); Monocytes # (Auto) 0.6 Thou/mm3 (0.0-0.8); Monocytes % (Auto) 6 % (0-12); Neutrophils # (Auto) 5.3 Thou/mm3 (1.8-7.7); Neutrophils % (Auto) 58 % (37-80); Nucleated Red Blood Cell # 0.00 Thou/mm3 (0.00-0.00); Nucleated Red Blood Cell % 0 /100 WBC (0); Platelet Count 425 Thou/mm3 (140-440); RDW Standard Deviation 42.2 fL (36.4-46.3); Red Blood Count 4.33 Miln/mm3 (4.00-5.20); White Blood Count 9.2 Thou/mm3 (3.6-11.0)
[2024-09-21 16:17] LABS: Alanine Aminotransferase 56 U/L (10-49); Albumin, Serum 4.2 gm/dL (3.5-5.0); Albumin/Globulin Ratio 1.6 (1.2-2.2); Alkaline Phosphatase 60 U/L (46-116); Anion Gap 10 (7-16); Aspartate Amino Transferase 48 U/L (0-34); BUN/Creatinine Ratio 6 Ratio (12-20); Bilirubin,Total 0.3 mg/dL (0.3-1.2); Blood Urea Nitrogen 5 mg/dL (9-23); Calcium 8.9 mg/dL (8.3-10.6); Calcium (Corrected) 8.9 mg/dL (8.5-10.1); Carbon Dioxide 23.5 mMol/L (20.0-31.0); Chloride 107 mMol/L (98-107); Creatinine (Component) 0.8 mg/dL (0.6-1.3); Estimated Creatinine Clearance 125.7 mL/min (>60); Globulin 2.7 gm/dL (2.3-3.5); Glucose 92 mg/dL (74-106); Lipase 29 U/L (12-53); Osmolality,Calculated 276 (275-295); Total Protein 6.9 gm/dL (5.7-8.2); Troponin I < 0.002 ng/mL (0.0-0.045); eGFR > 60 See Note
[2024-09-21 16:59] LABS: B-Type Natriuretic Peptide < 20 pg/mL (0-100)
--- NOTE | 2024-09-21 17:04 | PD.EDCHEST ---
ED Chest Pain RME/HPI General Chief Complaint: Chest Pain Stated Complaint: CHEST PAIN Time Seen by Provider: 09/21/24 15:29 Source: patient Arrival date/time: 09/21/24 14:53 43-year-old female with a history of type 2 diabetes presents to the emergency room with a chief complaint of 7 out of 10 sternal chest pain and epigastric abdominal pain x 2 days Mode of arrival: ambulatory Limitations: no limitations Related Data Previous Rx's ?Medication ?Instructions ?Recorded metformin 500 mg tablet 500 mg PO BID #60 tabs 01/27/24 olanzapine 10 mg tablet 10 mg PO QAM #30 tabs 01/27/24 olanzapine 20 mg tablet 20 mg PO QPM #30 tabs 01/27/24 pantoprazole 20 mg tablet,delayed 20 mg PO QDAY #30 tabs 01/27/24 release prazosin 5 mg capsule 5 mg PO QPM #30 caps 01/27/24 quetiapine 50 mg tablet 50 mg PO ONCE HS #30 tabs 01/27/24 amoxicillin 875 mg-potassium 1 tab PO BID #14 tabs 08/06/24 clavulanate 125 mg tablet omeprazole 40 mg capsule,delayed 40 mg PO QDAY #20 caps 09/21/24 release Allergies Allergy/AdvReac Type Severity Reaction Status Date / Time Penicillins Allergy Unknown Verified 08/10/24 14:06 Review of Systems Review of Systems Systems Reviewed: All systems reviewed, normal except as documented Constitutional Constitutional: Reports system reviewed and no additional complaints, except as documented, Denies fatigue, Denies fever(s), Denies headache(s) and Denies weakness Eyes Eyes: Reports system reviewed and no additional complaints, except as documented, Denies blurry vision and Denies change in vision ENT Ears, Nose, Mouth, and Throat: Reports system reviewed and no additional complaints, except as documented, Denies otalgia, Denies headache(s), Denies nasal congestion, Denies throat swelling and Denies vertigo Cardiovascular Cardiovascular: Reports system reviewed and no additional complaints, except as documented, Reports chest pain, Reports chest pain at rest, Reports chest pain with activity, Denies dyspnea and Denies dyspnea on exertion Respiratory Respiratory: Reports system reviewed and no additional complaints, except as documented, Denies chest congestion, Denies cough, Denies dyspnea, Denies dyspnea on exertion and Denies wheezing Gastrointestinal Gastrointestinal: Reports system reviewed and no additional complaints, except as documented, Denies abdominal pain, Denies cramping, Denies nausea and Denies vomiting Genitourinary Genitourinary: Reports system reviewed and no additional complaints, except as documented Musculoskeletal Musculoskeletal: Reports system reviewed and no additional complaints, except as documented and Denies back pain Integumentary/Breasts Skin/Breast: Reports system reviewed and no additional complaints, except as documented and Denies wounds Neurologic Neurologic: Reports system reviewed and no additional complaints, except as documented, Denies confusion, Denies headache(s), Denies lack of coordination, Denies vertigo and Denies weakness Psychiatric Psychiatric: Reports system reviewed and no additional complaints, except as documented, Denies anxiety, Denies confusion, Denies depression, Denies paranoia, Denies suicidal ideation and Denies tactile hallucinations Endocrine Endocrine: Reports system reviewed and no additional complaints, except as documented and Denies fatigue Hematologic/Lymphatic Hematologic/Lymphatic: Reports system reviewed and no additional complaints, except as documented and Denies lymphadenopathy Allergic/Immunologic Allergic/Immunologic: Reports system reviewed and no additional complaints, except as documented, Denies throat swelling, Denies urticaria and Denies wheezing Past Medical History Past Medical History NEUROLOGIC: Positive Seizures CARDIAC: Positive Hypercholesterolemia; Negative Cardiac Disorders or Congestive Heart Failure RESPIRATORY: Positive Asthma; Negative Chronic Obstructive Pulmonary Disease (COPD) GASTROINTESTINAL: Positive Gastroesophageal Reflux Disease GENITOURINARY: Negative Renal Disease ENDOCRINE: Negative Diabetes Mellitus Type 1 or Diabetes Mellitus Type 2 HEMATOLOGIC: Negative Sickle Cell Disease PSYCHO/SOCIAL: Positive Schizophrenia, Bipolar Disorder, Depression and Anxiety Surgical History SURGICAL: Positive Section Social History SMOKING STATUS: Light (< 1 pack/day) ED Exam General Limitations: Present no limitations General appearance: Present alert and in no apparent distress Head Head exam: Present atraumatic Eye Eye exam: Present normal appearance, PERRL and EOMI ENT ENT exam: Present normal exam, normal oropharynx and mucous membranes moist Neck Neck exam: Present normal inspection, full ROM and trachea midline Chest Chest inspection: Present normal inspection and symmetric chest wall rise Respiratory Respiratory exam: Present normal lung sounds bilaterally; Absent respiratory distress, wheezes, stridor, accessory muscle use or prolonged expiratory phase Cardiovascular Cardiovascular exam: Present regular rate, normal rhythm, normal heart sounds, +S1 and +S2; Absent bradycardia, tachycardia, irregular rhythm, systolic murmur, diastolic murmur, rubs, gallop, clicks or JVD Abdominal Exam Abdominal exam: Present soft and normal bowel sounds Extremities Exam Extremities exam: Present normal inspection and full ROM Back Exam Back exam: Present normal inspection and full ROM Neurological Exam Neurological exam: Present alert, oriented X3 and CN II-XII intact Psychiatric Psychiatric exam: Present normal affect and normal mood Skin Skin exam: Present warm, dry, intact and normal color Course Quality Measures none Orders Category Date Time Status EKG (ED ONLY) *Do not use* NOW Care 09/21/24 14:55 Completed EKG (ED Only) Stat Exams 09/21/24 14:55 Draft XR chest 1V portable Stat Exams 09/21/24 15:28 Completed B-Type Natriuretic Peptide Stat Lab 09/21/24 15:37 Completed CBC Stat Lab 09/21/24 15:37 Completed Comprehensive Metabolic Panel Stat Lab 09/21/24 16:50 Completed Drug Screen,Urine Stat Lab 09/21/24 15:28 Ordered Lipase Stat Lab 09/21/24 16:50 Completed Troponin I Stat Lab 09/21/24 16:50 Completed Urinalysis Stat Lab 09/21/24 15:28 Ordered Ondansetron Inj [Zofran Inj] Med 09/21/24 15:28 Discontinued 4 mg IVP X1 ONE Sodium Chloride 0.9% 1000 ml [Ns] 1,000 ml Med 09/21/24 15:29 Discontinued IV 999 mls/hr mg Hyd/Al Hyd/Elana Susp [Maalox Susp] Med 09/21/24 17:05 Discontinued 30 ml PO X1 ONE Vital Signs Vital signs: Vital Signs Temperature 97.8 F 09/21/24 15:00 Pulse Rate 94 09/21/24 15:00 Respiratory Rate 20 09/21/24 15:00 Blood Pressure 108/75 09/21/24 15:00 Pulse Oximetry (%) 94 L 09/21/24 15:00 Oxygen Delivery Method Room Air 09/21/24 15:00 O2 saturation 94% within normal limits Chest Pain MDM Narrative MDM Narrative:: 43-year-old female with a history of type 2 diabetes presents to the emergency room with a chief complaint of 7 out of 10 sternal chest pain and epigastric abdominal pain x 2 days Patient is hemodynamically stable and in no apparent distress Physical examination shows clear bilateral lung sounds there is no wheezing stridor or any abnormal breath sounds. The patient has a strong and regular rhythm S1 and S2 was noted. EKG was completed and shows normal sinus rhythm at [address] deviation. Chest x-ray was completed and was negative for any pneumonic infiltrates. The patient has a heart score of 1 point Patient was discharged and educated to follow-up with primary care provider in the next 24 to 48 hours and return to the emergency room for any evidence of worsening signs or symptoms Patient data External records reviewed:: [facility] previous records Clinical information provided by:: patient Social determinants that could affect healthcare access:: none Patient has the following chronic illnesses:: Schizophrenia How is presenting disease/condition affected by chronic disease/condition?: no chronic disease Evaluation data The following diagnostics were reviewed and interpreted by me:: lab results and radiology exam(s) Lab and/or radiology exams considered but not ordered:: Labs and radiology exams considered in order Interpretation Summary: Chest [id number]: Normal heart size Minor atelectasis in the lower lung zones. No pneumonia or pulmonary edema IMPRESSION: No pneumonia or pulmonary edema Medications / Prescriptions Medications or Prescriptions considered but not ordered:: Medication given Medication administrations:: Medication Administration History Discontinued Medications Al Hydrox/Mg Hydrox/Simethicone (Mg Hyd/Al Hyd/Elana (Maalox Reg) Susp 30 Ml Udc) 30 ml PO X1 ONE Stop: 09/21/24 17:06 Last Admin: 09/21/24 17:20 Dose: 30 ml Documented By: RAQUEL Sodium Chloride (Ns) 1,000 mls @ 999 mls/hr IV .Q1H1M ONE Stop: 09/21/24 16:29 Last Infusion: 09/21/24 16:36 Dose: Infused Documented By: Admin: 09/21/24 15:35 Dose: 999 mls/hr Documented By: RAQUEL Ondansetron HCl (Ondansetron Inj 2 Mg/Ml Inj 2 Ml) 4 mg IVP X1 ONE; Protocol Stop: 09/21/24 15:29 Last Admin: 09/21/24 15:36 Dose: 4 mg Documented By: RAQUEL Medication given Consultations Consultation(s) initiated? (list below): No Diagnosis Chest Pain Differential Diagnosis: stable angina, unstable angina pectoris, atypical chest pain, st elevation myocardial infarction, costochondritis and chest pain Most likely diagnosis given after review of the tests above:: Chest pain Admission Indicated Admission indicated?: not indicated Admission Request Was there a request for admission?: No Disposition Plan Disposition Plan: Discharge Discharge Attestation Discharge Attestation: The patient and all family members were given an opportunity to ask questions and understood the discharge instructions. Discharge instructions specifically effects, indications for sooner follow up or return to the emergency department, and the expected course of current diagnosis. Patient condition: Stable Discharge Plan Plan Patient Disposition: HOME (Self Care) Discharge Disposition comment: Stable Prescriptions/Referrals Prescriptions/Med Rec: New omeprazole 40 mg capsule,delayed release(DR/EC) 40 mg PO QDAY Qty: 20 0RF No Action olanzapine 20 mg tablet 20 mg PO QPM Qty: 30 0RF olanzapine 10 mg tablet 10 mg PO QAM Qty: 30 0RF metformin 500 mg tablet 500 mg PO BID Qty: 60 0RF pantoprazole 20 mg tablet,delayed release (DR/EC) 20 mg PO QDAY Qty: 30 0RF quetiapine 50 mg tablet 50 mg PO ONCE HS Qty: 30 0RF prazosin 5 mg capsule 5 mg PO QPM Qty: 30 0RF amoxicillin-pot clavulanate 875-125 mg tablet 1 tab PO BID Qty: 14 0RF Referrals: Eleazar Monreal MD [Primary Care Provider] - In 1 week Problem List Clinical Impression: Chest pain Patient/Caregiver Discharge Instructions Education Materials: ED Chest Pain, Noncardiac Additional Instructions: Please follow-up with your primary care provider in the next 24 to 48 hours Medication was sent to your pharmacy please pick it up and take it as indicated For any evidence of worsening signs or symptoms return to the emergency room immediate Print Language: Greenlandic Stand Alone Forms: Tessie Award Info., Patient Portal Info Letter PA/IT DESKTOP SUPPORT SPECIALIST Supervising Physician PA/IT DESKTOP SUPPORT SPECIALIST Supervising Physician: Dr. Armando HOBBS Attestation MD Attestation The patient was seen by the midlevel practitioner. I, the co-signing physician, was present during the entire ER visit. While I did not physically examine the patient, I was available for consultation as needed. I agree with the plan and documentation.
[2024-09-21 17:07] VITALS: BP 136/101; PULSE 77; RESP 18; TEMP 36.3; O2SAT 99
[2024-09-21] MEDS: MG HYD/AL HYD/SIME (Maalox Reg) SUSP 30 ML UDC PO (17:20)
[2024-09-21 17:24] LABS: Potassium 4.1 mMol/L (3.4-5.1)
[2024-09-21 17:25] LABS: Sodium 140 mMol/L (136-145)
== END 2024-09-21 18:03 | disposition home or self-care (01) ==
PROVIDERS: Nurse Practitioner Family; Emergency Provider Family Medicine; PCP Family Medicine
DX: R07.2 Precordial pain (principal); R10.13 Epigastric pain; E11.9 Type 2 diabetes mellitus without complications
CPT/HCPCS: 36415; 71045; 80053; 80307; 81001; 83690; 83880; 84484; 85025; 93005; 96361; 96374; 99283; J2405; J7030; A9270

== ENCOUNTER 2024-11-02 12:49 | Emergency (ER) | payer MEDICAID, SELFPAY ==
[2024-11-02 12:50] VITALS: PULSE 124
[2024-11-02 12:51] VITALS: BP 133/88; PULSE 115; RESP 18; TEMP 37; O2SAT 95; BMI 32.5
--- NOTE | 2024-11-02 12:51 | EKG_ITS ---
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
[2024-11-02 13:31] LABS: Collection Type, Urine Clean Catch
[2024-11-02 13:38] LABS: Basophils # (Auto) 0.1 Thou/mm3 (0.0-0.2); Basophils % (Auto) 1 % (0-2.5); Eosinophils # (Auto) 0.4 Thou/mm3 (0.0-0.5); Eosinophils % (Auto) 4 % (0-10); Hematocrit 35.8 % (36.0-46.0); Hemoglobin 12.1 g/dL (12.0-16.0); Immature Granulocytes Auto 0.02 Thou/mm3 (0.00-0.00); Lymphocytes # (Auto) 2.7 Thou/mm3 (1.0-4.8); Lymphocytes % (Auto) 31 % (10-50); Mean Corpuscular HGB Conc 33.8 g/dl (31.0-37.0); Mean Corpuscular Hemoglobin 29.8 pg (25.0-35.0); Mean Corpuscular Volume 88 fL (80-100); Monocytes # (Auto) 0.6 Thou/mm3 (0.0-0.8); Monocytes % (Auto) 6 % (0-12); Neutrophils # (Auto) 5.0 Thou/mm3 (1.8-7.7); Neutrophils % (Auto) 58 % (37-80); Nucleated Red Blood Cell # 0.00 Thou/mm3 (0.00-0.00); Nucleated Red Blood Cell % 0 /100 WBC (0); Platelet Count 410 Thou/mm3 (140-440); RDW Standard Deviation 40.9 fL (36.4-46.3); Red Blood Count 4.06 Miln/mm3 (4.00-5.20); White Blood Count 8.7 Thou/mm3 (3.6-11.0)
[2024-11-02 13:38] LABS: Bilirubin,Urine Negative (Negative); Blood,Urine Negative (Negative); Clarity,Urine Clear (Clear/Hazy); Color,Urine Lt-Yellow (Lt Yel-Yel); Culture Indicated,Urine Not Indicated; Glucose, Urine Negative (Negative); Ketones,Urine Negative (Negative); Leukocyte Esterase,Urine Negative (Negative); Nitrite,Urine Negative (Negative); PH,Urine 5.5 (5.0-7.0); Protein,Urine Negative (Neg - Trace); RBC,Urine 2 /hpf (0-3); Specific Gravity,Urine 1.016 (1.001-1.035); Squamous Epithelial Cell,Urine 1 /hpf (0-5); Urobilinogen,Urine Negative mg/dL (0.0-1.0); WBC,Urine 2 /hpf (0-5)
--- NOTE | 2024-11-02 13:45 | PD.EDWEAK ---
ED Weakness RME/HPI General Chief complaint: Syncope / Near Syncope Stated complaint: NEAR SYNCOPE Time Seen by Provider: 11/02/24 12:51 Arrival date/time: 11/02/24 12:49 Limitations: no limitations RME / HPI RME / HPI Narrative: 43 year old female with history of asthma and bipolar disorder presents to the ED [facility] for evaluation of near syncopal episode and global weakness today. Patient states this morning she felt at her usual state of health. States she walked to get food with some friends and after returning noted she felt very fatigued and drained. States she sat on the table to take a nap and after standing she felt very dizzy, light headed, weak, and near syncope. Denied losing any consciousness. Prehospital blood pressure 136/88, HR 120s, saturating 97% on room air, and blood sugar 124. Patient also reports she has had dysuria for several days, no hematuria. Denies fevers, chills, chest pain, cough, shortness of breath. Related Data Previous Rx's ?Medication ?Instructions ?Recorded metformin 500 mg tablet 500 mg PO BID #60 tabs 01/27/24 olanzapine 10 mg tablet 10 mg PO QAM #30 tabs 01/27/24 olanzapine 20 mg tablet 20 mg PO QPM #30 tabs 01/27/24 pantoprazole 20 mg tablet,delayed 20 mg PO QDAY #30 tabs 01/27/24 release prazosin 5 mg capsule 5 mg PO QPM #30 caps 01/27/24 quetiapine 50 mg tablet 50 mg PO ONCE HS #30 tabs 01/27/24 amoxicillin 875 mg-potassium 1 tab PO BID #14 tabs 08/06/24 clavulanate 125 mg tablet omeprazole 40 mg capsule,delayed 40 mg PO QDAY #20 caps 09/21/24 release Allergies Allergy/AdvReac Type Severity Reaction Status Date / Time Penicillins Allergy Unknown Verified 08/10/24 14:06 Review of Systems Review of Systems Systems Reviewed: All systems reviewed, normal except as documented Past Medical History Past Medical History NEUROLOGIC: Positive Seizures CARDIAC: Positive Hypercholesterolemia RESPIRATORY: Positive Asthma GASTROINTESTINAL: Positive Gastroesophageal Reflux Disease PSYCHO/SOCIAL: Positive Schizophrenia, Bipolar Disorder, Depression and Anxiety Surgical History SURGICAL: Positive Section Social History SMOKING STATUS: Light (< 1 pack/day) ED Exam General Limitations: Present no limitations General appearance: Present alert and in no apparent distress Head Head exam: Present atraumatic, normocephalic and normal inspection Eye Eye exam: Present normal appearance, PERRL and EOMI ENT ENT exam: Present normal exam, normal oropharynx and mucous membranes moist Neck Neck exam: Present normal inspection, full ROM and trachea midline Chest Chest inspection: Present normal inspection and symmetric chest wall rise Respiratory Respiratory exam: Present normal lung sounds bilaterally Cardiovascular Cardiovascular exam: Present normal rhythm, tachycardia and normal heart sounds Abdominal Exam Abdominal exam: Present soft; Absent distention, tenderness, guarding or rebound Extremities Exam Extremities exam: Present normal inspection and full ROM Back Exam Back exam: Present normal inspection and full ROM Neurological Exam Neurological exam: Present alert, oriented X3, CN II-XII intact and normal gait Psychiatric Psychiatric exam: Present normal affect and normal mood Skin Skin exam: Present warm, dry, intact and normal color Course Quality Measures none Orders Category Date Time Status Bedside COVID-19 Antigen Test NOW Care 11/02/24 12:53 Completed Bedside Influenza A&B Antigen Test NOW Care 11/02/24 12:53 Completed EKG (ED ONLY) *Do not use* NOW Care 11/02/24 12:52 Completed Insert IV NOW Care 11/02/24 17:02 Completed EKG (ED Only) Stat Exams 11/02/24 12:51 Draft CBC Stat Lab 11/02/24 13:17 Completed CMP [Comprehensive Metabolic Panel] Stat Lab 11/02/24 13:17 Completed FLU A&B [Influenza A & B Rapid Panel] Stat Lab 11/02/24 13:11 Completed HCG,Qualitative Serum Stat Lab 11/02/24 13:17 Completed Troponin I Stat Lab 11/02/24 13:17 Completed UA, C/S IF [Urinalysis, C/S if Indicated] Stat Lab 11/02/24 13:25 Completed Acetaminophen Tab [Tylenol Tab] Med 11/02/24 14:33 Discontinued 650 mg PO X1 ONE Ringers Lactated 1000 ml [Lactated Ringers] 1,000 ml Med 11/02/24 12:51 Discontinued IV 999 mls/hr Vital Signs Vital signs: Vital Signs Temperature 98.6 F 11/02/24 12:51 Pulse Rate 115 H 11/02/24 12:51 Respiratory Rate 18 11/02/24 12:51 Blood Pressure 133/88 H 11/02/24 12:51 Pulse Oximetry (%) 95 11/02/24 12:51 Oxygen Delivery Method Room Air 11/02/24 12:51 Pulse ox is 95% on room air which is adequate. Weakness MDM Narrative MDM Narrative:: Patient is a 43-year-old female is in the emergency room with concerns for feeling lightheaded . Vital signs and exam as listed. Concern for dehydration, ACS arrhythmia, urinary tract infection management ordered labs EKG. EKG performed today at 1256 notable for sinus tachycardia, normal intervals, nonspecific T wave changes, not a cardiac alert. Urinalysis without evidence of infection. Labs without acute hematologic abnormality. No acute electrolyte abnormality. No transaminitis, troponin not elevated. Flu negative. Ordered fluids. hCG negative. On reevaluation patient hemodynamically stable not distressed feels better. Will discharge home close return precautions follow-up with primary care doctor. Patient data External records reviewed:: [facility] previous records Clinical information provided by:: patient Social determinants that could affect healthcare access:: mental health Patient has the following chronic illnesses:: See MDM How is presenting disease/condition affected by chronic disease/condition?: exacerbated by Evaluation data The following diagnostics were reviewed and interpreted by me:: lab results, radiology exam(s) and EKG tracing(s) Lab and/or radiology exams considered but not ordered:: None Interpretation Summary: See MDM Medications / Prescriptions Medications or Prescriptions considered but not ordered:: None Medication administrations:: Medication Administration History Discontinued Medications Acetaminophen (Acetaminophen 325 Mg Tablet) 650 mg PO X1 ONE Stop: 11/02/24 14:34 Last Admin: 11/02/24 17:03 Dose: 650 mg Documented By: MARILOU Lactated Ringer's (Lactated Ringers) 1,000 mls @ 999 mls/hr IV .Q1H1M ONE Stop: 11/02/24 13:51 Last Infusion: 11/02/24 17:53 Dose: Infused Documented By: Admin: 11/02/24 17:02 Dose: 999 mls/hr Documented By: MARILOU See above Consultations Consultation(s) initiated? (list below): No Diagnosis Weakness Differential Diagnosis: other (See MDM ) Most likely diagnosis given after review of the tests above:: Pre syncope Admission Indicated Admission indicated?: not indicated Admission Request Was there a request for admission?: No Disposition Plan Disposition Plan: Discharge Discharge Attestation Discharge Attestation: The patient and all family members were given an opportunity to ask questions and understood the discharge instructions. Discharge instructions specifically effects, indications for sooner follow up or return to the emergency department, and the expected course of current diagnosis. Patient condition: Stable Discharge Plan Plan Patient Disposition: HOME (Self Care) Prescriptions/Referrals Prescriptions/Med Rec: No Action olanzapine 20 mg tablet 20 mg PO QPM Qty: 30 0RF olanzapine 10 mg tablet 10 mg PO QAM Qty: 30 0RF metformin 500 mg tablet 500 mg PO BID Qty: 60 0RF pantoprazole 20 mg tablet,delayed release (DR/EC) 20 mg PO QDAY Qty: 30 0RF quetiapine 50 mg tablet 50 mg PO ONCE HS Qty: 30 0RF prazosin 5 mg capsule 5 mg PO QPM Qty: 30 0RF amoxicillin-pot clavulanate 875-125 mg tablet 1 tab PO BID Qty: 14 0RF omeprazole 40 mg capsule,delayed release(DR/EC) 40 mg PO QDAY Qty: 20 0RF Referrals: Rosangela Castro PA-C [Primary Care Provider] - In 1 week Problem List Clinical Impression: Pre-syncope Patient/Caregiver Discharge Instructions Education Materials: Causes of Syncope Additional Instructions: Please hydrate well, eat a balanced diet. Please return to the Emergency Department mediately if you have recurrence of symptoms or worsening symptoms. Please follow-up with department care doctor within 1 to 2 days. Print Language: Upper Sorbian Stand Alone Forms: Tessie Award Info., Patient Portal Info Letter
[2024-11-02 13:47] LABS: Influenza A Ag Negative; Influenza B Ag Negative
[2024-11-02 13:58] LABS: Alanine Aminotransferase 42 U/L (10-49); Albumin, Serum 3.9 gm/dL (3.5-5.0); Albumin/Globulin Ratio 1.6 (1.2-2.2); Alkaline Phosphatase 50 U/L (46-116); Anion Gap 9 (7-16); Aspartate Amino Transferase 25 U/L (0-34); BUN/Creatinine Ratio 9 Ratio (12-20); Bilirubin,Total 0.2 mg/dL (0.3-1.2); Blood Urea Nitrogen 7 mg/dL (9-23); Calcium 9.3 mg/dL (8.3-10.6); Calcium (Corrected) 9.4 mg/dL (8.5-10.1); Carbon Dioxide 24.5 mMol/L (20.0-31.0); Chloride 109 mMol/L (98-107); Creatinine (Component) 0.8 mg/dL (0.6-1.3); Estimated Creatinine Clearance 123.8 mL/min (>60); Globulin 2.4 gm/dL (2.3-3.5); Glucose 95 mg/dL (74-106); Osmolality,Calculated 281 (275-295); Potassium 3.6 mMol/L (3.4-5.1); Sodium 142 mMol/L (136-145); Total Protein 6.3 gm/dL (5.7-8.2); Troponin I < 0.002 ng/mL (0.0-0.045); eGFR > 60 See Note
[2024-11-02 14:58] LABS: HCG,Qualitative Serum Negative
[2024-11-02] MEDS: RINGERS LACTATED 1000 ML 1,000 ML 999 ML IV (17:02)
[2024-11-02] MEDS: ACETAMINOPHEN 325 MG TABLET 650 MG PO (17:03)
== END 2024-11-02 18:28 | disposition home or self-care (01) ==
PROVIDERS: Emergency Provider Emergency Medicine; PCP Physician Assistant
DX: R55 Syncope and collapse (principal); Z59.01 Sheltered homelessness; F31.9 Bipolar disorder, unspecified; J45.909 Unspecified asthma, uncomplicated
CPT/HCPCS: 36415; 80053; 81001; 84484; 84703; 85025; 87502; 87811; 93005; 96360; 99283; J7120; A9270

== ENCOUNTER 2024-12-07 06:38 | Day surgery (SDC) | payer MEDICAID, SELFPAY ==
[2024-12-07] VITALS (13 sets, daily range): BP systolic 94–152; BP diastolic 62–102; PULSE 68–100; RESP 13–20; TEMP 36.3–37.1; O2SAT 94–99; BMI 32.1
--- NOTE | 2024-12-07 06:57 | XR_ITS ---
Examination: CT abdomen and pelvis without contrast. Coronal 3-D reconstructions. Sagittal 2-D reconstructions. Date and time of exam: December 07, 2024, 0950 hours, comparison April 01, 2023 INDICATIONS: Generalized abdominal pain onset today CTDI: vol (mGy): 10.7 DLP: (mGycm): 678 Technique: Axial images of the abdomen have been obtained, 3 mm slice thickness Intravenous contrast material has not been administered. Low dose protocols were performed. One or more of the following dose reduction techniques were used; automated exposure control, adjustment of the mA and/or KV according to patient size, use of iterative reconstruction technique. Findings: No visualized liver or splenic lesion No definite gallstones No pancreatic or adrenal mass Mild renal scarring No renal or ureteral calculi, no hydronephrosis Aorta normal size No bowel obstruction Appendix is mildly enlarged and fluid-filled with inflammatory change and appendicolith, axial images 176 through 148 No pelvic abscess Bladder intact IMPRESSION: Acute appendicitis, appendix extends retrocecal No pelvic abscess
--- NOTE | 2024-12-07 06:58 | EDRME_ITS ---
Rapid Medical Screening Exam [facility] Arrival date/time: 12/07/24 06:38 43-year-old female with a history of type 2 diabetes, presents to the emergency room with a chief complaint of 8 out of 10 abdominal pain, nausea, vomiting x 1 day I have greeted and performed a focused initial assessment of this patient. A comprehensive ED assessment and evaluation of the patient, analysis of all test results, and completion of the medical decision making process will be conducted by additional ED providers. Chief Complaint: Abdominal Pain Vital signs: Vital Signs Temperature 97.6 F 12/07/24 06:52 Pulse Rate 68 12/07/24 06:52 Respiratory Rate 17 12/07/24 06:52 Blood Pressure 152/102 H 12/07/24 06:52 Pulse Oximetry (%) 99 12/07/24 06:52 Oxygen Delivery Method Room Air 12/07/24 06:52 Vital signs reviewed by provider: Yes Exam: Tenderness to the epigastric area of the patient's abdomen that radiates to the right lower quadrant with palpation Clear bilateral lung sounds. Clinical Impression: Appendicitis/gastroenteritis/constipation
[2024-12-07] MEDS: HYDROcodone/APAP 5/325 TABLET 1 TAB PO ×2 (07:16→14:48)
[2024-12-07] MEDS: ONDANSETRON ODT 4 MG TABRAP PO (07:16)
[2024-12-07 07:24] LABS: Collection Type, Urine Clean Catch
[2024-12-07 07:24] LABS: Basophils # (Auto) 0.1 Thou/mm3 (0.0-0.2); Basophils % (Auto) 1 % (0-2.5); Eosinophils # (Auto) 0.4 Thou/mm3 (0.0-0.5); Eosinophils % (Auto) 3 % (0-10); Hematocrit 43.9 % (36.0-46.0); Hemoglobin 14.2 g/dL (12.0-16.0); Immature Granulocytes Auto 0.05 Thou/mm3 (0.00-0.00); Lymphocytes # (Auto) 1.9 Thou/mm3 (1.0-4.8); Lymphocytes % (Auto) 14 % (10-50); Mean Corpuscular HGB Conc 32.3 g/dl (31.0-37.0); Mean Corpuscular Hemoglobin 29.1 pg (25.0-35.0); Mean Corpuscular Volume 90 fL (80-100); Monocytes # (Auto) 0.8 Thou/mm3 (0.0-0.8); Monocytes % (Auto) 6 % (0-12); Neutrophils # (Auto) 10.2 Thou/mm3 (1.8-7.7); Neutrophils % (Auto) 76 % (37-80); Nucleated Red Blood Cell # 0.00 Thou/mm3 (0.00-0.00); Nucleated Red Blood Cell % 0 /100 WBC (0); Platelet Count 452 Thou/mm3 (140-440); RDW Standard Deviation 42.7 fL (36.4-46.3); Red Blood Count 4.88 Miln/mm3 (4.00-5.20); White Blood Count 13.5 Thou/mm3 (3.6-11.0)
[2024-12-07 07:37] LABS: Bilirubin,Urine Negative (Negative); Blood,Urine 3+ (Negative); Color,Urine Yellow (Lt Yel-Yel); Glucose, Urine Negative (Negative); Ketones,Urine Trace (Negative); Leukocyte Esterase,Urine Positive (Negative); Nitrite,Urine Negative (Negative); PH,Urine 6.5 (5.0-7.0); Protein,Urine 1+ (Neg - Trace); RBC,Urine 1369 /hpf (0-3); Specific Gravity,Urine 1.028 (1.001-1.035); Squamous Epithelial Cell,Urine 13 /hpf (0-5); Urobilinogen,Urine Negative mg/dL (0.0-1.0); WBC,Urine 7 /hpf (0-5)
[2024-12-07 07:45] LABS: Alanine Aminotransferase 30 U/L (10-49); Albumin, Serum 4.9 gm/dL (3.5-5.0); Albumin/Globulin Ratio 1.9 (1.2-2.2); Alkaline Phosphatase 74 U/L (46-116); Anion Gap 8 (7-16); Aspartate Amino Transferase 25 U/L (0-34); BUN/Creatinine Ratio 9 Ratio (12-20); Bilirubin,Total 0.6 mg/dL (0.3-1.2); Blood Urea Nitrogen 9 mg/dL (9-23); Calcium 9.6 mg/dL (8.3-10.6); Calcium (Corrected) 9.6 mg/dL (8.5-10.1); Carbon Dioxide 26.5 mMol/L (20.0-31.0); Chloride 107 mMol/L (98-107); Creatinine (Component) 1.0 mg/dL (0.6-1.3); Estimated Creatinine Clearance 98.4 mL/min (>60); Globulin 2.6 gm/dL (2.3-3.5); Glucose 96 mg/dL (74-106); Lipase 32 U/L (12-53); Osmolality,Calculated 279 (275-295); Potassium 4.0 mMol/L (3.4-5.1); Sodium 141 mMol/L (136-145); Total Protein 7.5 gm/dL (5.7-8.2); eGFR > 60 See Note
[2024-12-07 07:52] LABS: HCG Qualitative,Urine Negative
[2024-12-07 08:10] LABS: Clarity,Urine Hazy (Clear/Hazy)
--- NOTE | 2024-12-07 11:03 | PD.EDADULT ---
ED General RME/HPI General Chief complaint: Abdominal Pain Stated complaint: ABD PAIN Time Seen by Provider: 12/07/24 11:03 Arrival date/time: 12/07/24 06:38 CC: Right lower quadrant abdominal pain abrupt onset at 3 AM this morning. Denies nausea vomiting fever chills no prior history of similar events RME / HPI RME / HPI narrative: 12/07/24 06:38 43-year-old female with a history of type 2 diabetes, presents to the emergency room with a chief complaint of 8 out of 10 abdominal pain, nausea, vomiting x 1 day I have greeted and performed a focused initial assessment of this patient. A comprehensive ED assessment and evaluation of the patient, analysis of all test results, and completion of the medical decision making process will be conducted by additional ED providers. Exam: Tenderness to the epigastric area of the patient's abdomen that radiates to the right lower quadrant with palpation Clear bilateral lung sounds. Impression: Appendicitis/gastroenteritis/constipation Related Data Previous Rx's ?Medication ?Instructions ?Recorded metformin 500 mg tablet 500 mg PO BID #60 tabs 01/27/24 olanzapine 10 mg tablet 10 mg PO QAM #30 tabs 01/27/24 olanzapine 20 mg tablet 20 mg PO QPM #30 tabs 01/27/24 pantoprazole 20 mg tablet,delayed 20 mg PO QDAY #30 tabs 01/27/24 release prazosin 5 mg capsule 5 mg PO QPM #30 caps 01/27/24 quetiapine 50 mg tablet 50 mg PO ONCE HS #30 tabs 01/27/24 amoxicillin 875 mg-potassium 1 tab PO BID #14 tabs 08/06/24 clavulanate 125 mg tablet omeprazole 40 mg capsule,delayed 40 mg PO QDAY #20 caps 09/21/24 release docusate sodium 100 mg capsule 100 mg PO BID #20 caps 12/07/24 (Colace) hydrocodone 5 mg-acetaminophen 325 1 tab PO Q6H PRN pain (scale score 12/07/24 mg tablet 7-10) #10 tabs ibuprofen 600 mg tablet 600 mg PO Q8H PRN pain (scale 12/07/24 score 4-6) #15 tabs Allergies Allergy/AdvReac Type Severity Reaction Status Date / Time Penicillins Allergy Unknown Verified 08/10/24 14:06 Review of Systems Review of Systems Narrative Review of Systems: GEN: No fever, no chills, no weight loss EYES: No discharge, no visual changes, no pain HEENT: No ear pain, no congestion, no sore throat PULM: No shortness of breath, no cough, no congestion CV: No chest pain, no dyspnea on exertion, no palpitations GI: No nausea, no vomiting, no diarrhea, + pain, no constipation : No frequency, no urgency, no dysuria MUSC/SKEL: No joint pain, no back pain SKIN: No rash PSYCH: No hallucinations, no depression HEME/LYMPH: No easy bleeding or bruising tendencies NEURO: No weakness, no headache Past Medical History Past Medical History NEUROLOGIC: Positive Seizures CARDIAC: Positive Hypercholesterolemia; Negative Cardiac Disorders or Congestive Heart Failure RESPIRATORY: Positive Asthma; Negative Chronic Obstructive Pulmonary Disease (COPD) GASTROINTESTINAL: Positive Gastroesophageal Reflux Disease GENITOURINARY: Negative Renal Disease ENDOCRINE: Negative Diabetes Mellitus Type 1 or Diabetes Mellitus Type 2 HEMATOLOGIC: Negative Sickle Cell Disease PSYCHO/SOCIAL: Positive Schizophrenia, Bipolar Disorder, Depression and Anxiety Surgical History SURGICAL: Positive Section Social History SMOKING STATUS: Current every day smoker ED Exam Narrative Physical exam: [General: Obese in moderate discomfort but not in any acute distress Head normocephalic HEENT: Eyes pupils are PERRLA EOMs are intact mouth pink moist membranes uvula is midline swallow symmetrical phonation is normal all the subsystems of HEENT are within acceptable limits Neck is supple nontender Chest equal chest rise nontender to palpation Respiratory: Clear to auscultation no wheezes crackles or rubs CV: Rate rhythm is regular no murmurs rubs or clicks Abdomen is distended secondary to body habitus, exquisite tenderness to McBurney's point reflexive guarding and rebound tenderness. Mild left lower quadrant pain no upper abdominal pain. Back: No CVA tenderness no spinous process tenderness from cervical spine thoracic and lumbar spine Skin: Intact no petechiae rash induration ulceration or crepitus Extremities: Moving all extremity against resistance cap refill less than 2 seconds neurosensory intact Neuro: Awake alert oriented x3 Glascow coma 15 no focal deficits] Course Quality Measures none Orders Category Date Time Status Patient Condition Routine Admission 12/07/24 11:[address] in Surgical Day Care Routine Admission 12/07/24 11:33 Active COVID-19 Screening Questionnaire NOW Care 12/07/24 11:52 Completed Consent [Obtain Written Consent For:] .NOW Care 12/07/24 11:33 Completed DC Home When Criteria Met . Care 12/07/24 13:16 Completed Decision to Admit X1 Care 12/07/24 11:52 Completed Intake and Output QSHIFT Care 12/07/24 11:45 Ordered NPO NOW Care 12/07/24 10:57 Completed NPO NOW Care 12/07/24 11:34 Completed Notify provider NEEDED Care 12/07/24 11:33 Completed Saline [Insert IV] NOW Care 12/07/24 10:56 Completed Diet NPO (NOW) Diet 12/07/24 10:57 Completed Diet NPO (NOW) Diet 12/07/24 11:34 Active Discharge Routine Discharge 12/07/24 13:[address] abdomen pelvis wo con Stat Exams 12/07/24 06:57 Completed CBC Stat Lab 12/07/24 07:14 Completed CMP [Comprehensive Metabolic Panel] Stat Lab 12/07/24 07:14 Completed HCG Qualitative,Urine Stat Lab 12/07/24 07:10 Completed Lipase Stat Lab 12/07/24 07:14 Completed [place] Stat Lab 12/07/24 07:14 Completed UA [Urinalysis] Stat Lab 12/07/24 07:10 Completed Urine Culture Stat Lab 12/07/24 07:10 Received Acetaminophen Ivpb [Ofirmev Inj] Med 12/07/24 13:16 Discontinued 1,000 mg in 100 ml IV Q6HR Acetaminophen Tab [Tylenol Tab] Med 12/07/24 11:33 Discontinued 650 mg PO Q6H PRN Bupivacaine Mpf 0.5% [Sensorcaine-Mpf Inj 0.5%] Med 12/07/24 11:53 Discontinued 30 ml .ROUTE .STK-MED ONE Cefoxitin [Mefoxin Inj] Med 12/07/24 12:23 Discontinued 2 gm .ROUTE .STK-MED ONE Cefoxitin [Mefoxin] 2 gm Med 12/07/24 11:33 Discontinued SODIUM CHLORIDE 0.9% (Popper) [Ns 0.9% (P)] 50 ml IV X1 HYDROcodone*/APAP 5/325 [[place] 5/325] Med 12/07/24 06:57 Discontinued 1 tab PO X1 ONE HYDROcodone*/APAP 5/325 [[place] 5/325] Med 12/07/24 14:45 Discontinued 1 tab PO X1 ONE Ketorolac Inj [Toradol Inj] Med 12/07/24 14:16 Discontinued 30 mg IVP X1 ONE Midazolam Inj [Versed Inj] Med 12/07/24 12:19 Discontinued 2 mg .ROUTE .STK-MED ONE Morphine* Inj Med 12/07/24 11:46 Discontinued 4 mg IVP X1 ONE Ondansetron Inj [Zofran Inj] Med 12/07/24 11:33 Discontinued 4 mg IVP Q6H PRN Ondansetron Odt [Zofran Odt] Med 12/07/24 06:57 Discontinued 4 mg PO X1 ONE Propofol Inj [Diprivan Inj] Med 12/07/24 12:19 Discontinued 200 mg IV .STK-MED ONE Rocuronium Inj [Zemuron Inj] Med 12/07/24 12:19 Discontinued 100 mg .ROUTE .STK-MED ONE Rocuronium Inj [Zemuron Inj] Med 12/07/24 12:23 Discontinued 100 mg .ROUTE .STK-MED ONE Sevoflurane [Ultane] Med 12/07/24 12:49 Discontinued 15 min INH .STK-MED ONE Sodium Chloride 0.9% 1000 ml [Ns] 1,000 ml Med 12/07/24 10:57 Discontinued IV 999 mls/hr Sugammadex Inj [Bridion Inj] Med 12/07/24 13:04 Discontinued 200 mg .ROUTE .STK-MED ONE fentaNYL INJ [Sublimaze Inj] Med 12/07/24 12:19 Discontinued 100 mcg .ROUTE .STK-MED ONE fentaNYL INJ [Sublimaze Inj] Med 12/07/24 13:16 Discontinued 50 mcg IVP Q5M PRN Code Status Routine Oth 12/07/24 11:33 Completed Oxygen Delivery PRN RT 12/07/24 13:16 Completed Vital Signs Vital signs: Vital Signs Temperature 97.6 F 12/07/24 06:52 Pulse Rate 68 12/07/24 06:52 Respiratory Rate 17 12/07/24 06:52 Blood Pressure 152/102 H 12/07/24 06:52 Pulse Oximetry (%) 99 12/07/24 06:52 Oxygen Delivery Method Room Air 12/07/24 06:52 Discharge Plan Plan Patient Disposition: Other Care w/in Hosp ([facility]) Patient condition on transfer: Stable Problem List Clinical Impression: Acute appendicitis Patient/Caregiver Discharge Instructions Discharge Activity: activity as tolerated PA/MARKETING PROJECT LEAD Supervising Physician PA/MARKETING PROJECT LEAD Supervising Physician: Brendon OWEN Clinical Information Provided by: patient Medical Records reviewed [facility] Meds/Rx considered, not ordered None Labs/Rad/Tests considered, not ordered None Chronic Illness/Social Conditions Explain: Schizophrenia depression Labs Labs: interpreted by ca Lab(s) Interpretation(s): CMP shows a leukocytosis of 13.5 no anemia or thrombocytopenia CMP shows no significant electrolyte imbalances renal impairment transaminitis or T. bili elevation Urine is 3+ blood RBCs at 1369 WBCs at 7 squamous epithelial at 13 this is a contaminated specimen. hCG is negative. Imaging Imaging interpretation: interpreted by ca Imaging Interpretation(s): Abdominal CT shows acute appendicitis Medication Administration(s) Medication Administration History Discontinued Medications Acetaminophen (Acetaminophen 325 Mg Tablet) 650 mg PO Q6H PRN PRN Reason: Fever >101.5 Stop: 01/06/25 11:32 Hydrocodone Bitart/Acetaminophen (Hydrocodone/Apap 5/325 Tablet) 1 tab PO X1 ONE Stop: 12/07/24 06:58 Last Admin: 12/07/24 07:16 Dose: 1 tab Documented By: JAYLENE Hydrocodone Bitart/Acetaminophen (Hydrocodone/Apap 5/325 Tablet) 1 tab PO X1 ONE Stop: 12/07/24 14:46 Last Admin: 12/07/24 14:48 Dose: 1 tab Documented By: CARLOS Bupivacaine HCl (Bupivacaine Mpf 0.5% 30 Ml Vial) Confirm Administered Dose 30 ml .ROUTE .STK-MED ONE Stop: 12/07/24 11:54 Cefoxitin Sodium (Cefoxitin Sod Inj 1 Gm Vial) Confirm Administered Dose 2 gm .ROUTE .STK-MED ONE Stop: 12/07/24 12:24 Fentanyl Citrate (Fentanyl Cit Inj 50 Mcg/Ml Amp 2ml) Confirm Administered Dose 100 mcg .ROUTE .STK-MED ONE Stop: 12/07/24 12:20 Fentanyl Citrate (Fentanyl Cit Inj 50 Mcg/Ml Amp 2ml) 50 mcg IVP Q5M PRN PRN Reason: PAIN SCALE 7-10 (Severe Stop: 12/07/24 15:16 Last Admin: 12/07/24 14:33 Dose: 50 mcg Documented By: Admin: 12/07/24 14:15 Dose: 50 mcg Documented By: Admin: 12/07/24 14:08 Dose: 50 mcg Documented By: Admin: 12/07/24 14:00 Dose: 50 mcg Documented By: CARLOS Sodium Chloride (Ns) 1,000 mls @ 999 mls/hr IV .Q1H1M ONE Stop: 12/07/24 11:57 Last Admin: 12/07/24 11:08 Dose: 999 mls/hr Documented By: GM Cefoxitin Sodium 2 gm/ Sodium (Chloride) 50 mls @ 100 mls/hr IV X1 ONE Stop: 12/07/24 12:02 Last Admin: 12/07/24 12:01 Dose: 100 mls/hr Documented By: GM Acetaminophen (Ofirmev Inj) 1,000 mg in 100 mls @ 250 mls/hr IV Q6HR PRN PRN Reason: PAIN 1-6 (mild-mod Stop: 12/08/24 13:15 Last Admin: 12/07/24 13:30 Dose: 250 mls/hr Documented By: CARLOS Ketorolac Tromethamine (Ketorolac Inj 30 Mg/Ml Vial) 30 mg IVP X1 ONE Stop: 12/07/24 14:17 Last Admin: 12/07/24 14:21 Dose: 30 mg Documented By: CARLOS Midazolam HCl (Midazolam Inj 1 Mg/Ml Vial 2 Ml) Confirm Administered Dose 2 mg .ROUTE .STK-MED ONE Stop: 12/07/24 12:20 Morphine Sulfate (Morphine Sulf Inj 4 Mg/Ml Vial) 4 mg IVP X1 ONE Stop: 12/07/24 11:47 Last Admin: 12/07/24 11:58 Dose: 4 mg Documented By: GERARDO Ondansetron HCl (Ondansetron Odt 4 Mg Tabrap) 4 mg PO X1 ONE; Protocol Stop: 12/07/24 06:58 Last Admin: 12/07/24 07:16 Dose: 4 mg Documented By: Ondansetron HCl (Ondansetron Inj 2 Mg/Ml Inj 2 Ml) 4 mg IVP Q6H PRN PRN Reason: NAUSEA OR VOMITING Stop: 01/06/25 11:32 Last Admin: 12/07/24 11:57 Dose: 4 mg Documented By: GM Propofol (Propofol Inj 10 Mg/Ml Vial 20 Ml) Confirm Administered Dose 200 mg IV .STK-MED ONE Stop: 12/07/24 12:20 Rocuronium [place] (Rocuronium Inj 10 Mg/Ml Vial 10 Ml) Confirm Administered Dose 100 mg .ROUTE .STK-MED ONE Stop: 12/07/24 12:20 Rocuronium [place] (Rocuronium Inj 10 Mg/Ml Vial 10 Ml) Confirm Administered Dose 100 mg .ROUTE .STK-MED ONE Stop: 12/07/24 12:24 Sevoflurane (Sevoflurane 15 Min/Unit Ea) Confirm Administered Dose 15 min INH .STK-MED ONE Stop: 12/07/24 12:50 Sugammadex Sodium (Sugammadex Inj 100 Mg/Ml 2ml Vial) Confirm Administered Dose 200 mg .ROUTE .STK-MED ONE Stop: 12/07/24 13:05
[2024-12-07] MEDS: SODIUM CHLORIDE 0.9% 1000 ML 1,000 ML 999 ML IV (11:08)
[2024-12-07] MEDS: ONDANSETRON INJ 2 MG/ML INJ 2 ML 4 MG IVP (11:57)
[2024-12-07] MEDS: MORPHINE SULF INJ 4 MG/ML VIAL IVP (11:58)
[2024-12-07] MEDS: CEFOXITIN 2 GM in SODIUM CHLORIDE 0.9% (Popper) 50 ML IV (12:01)
--- NOTE | 2024-12-07 12:45 | PD.SURHP ---
HPI Date of Admission 12/07/2024 Chief Complaint Chief Complaint: Right lower quadrant abdominal pain with nausea and vomiting HPI 43-year-old obese female with history of diabetes, schizophrenia and bipolar disorder presented to the emergency department with acute onset of abdominal pain. Her pain started 3:00 in the morning and woke her up. Her pain has been localized over right lower quadrant. She has had an episode of nausea and vomiting, but denies fever, chills, diarrhea, constipation or dysuria. She denies having similar symptoms in the past with no recent history of trauma. Review of Systems Constitutional Constitutional: Denies chills and Denies fever(s) Cardiovascular Cardiovascular: Denies chest pain Respiratory Respiratory: Denies cough Gastrointestinal Gastrointestinal: Reports abdominal pain, Reports nausea and Reports vomiting Genitourinary Genitourinary: Denies difficulty voiding Hematologic/Lymphatic Hematologic/Lymphatic: Denies easy bleeding and Denies easy bruising Past Medical History Surgical History OTHER SURGICAL HX: Social History SMOKING STATUS: Never smoker SUBSTANCE USE: former substance user ALCOHOL: Never Meds Home Medications and Allergies Allergies Allergy/AdvReac Type Severity Reaction Status Date / Time Penicillins Allergy Unknown Verified 08/10/24 14:06 Exam Vital Signs Temp Pulse Resp BP Pulse Ox O2 Del Method 98.7 F 78 18 126/86 H 98 Room Air 12/07/24 10:58 12/07/24 10:58 12/07/24 10:58 12/07/24 10:58 12/07/24 10:58 12/07/24 10:58 Constitutional Constitutional: no acute distress Routine Respiratory Exam Respiratory: Present CTA bilaterally Routine Cardiovascular Exam Cardiovascular: Present RRR Routine Abdominal Exam Abdominal: Present soft, normoactive bowel sounds and tenderness (Right lower quadrant tenderness to palpation with guarding, no rebound tenderness or peritonitis at this time); Absent distended Results Results: Laboratory Laboratory results: results reviewed Results: Imaging CT scan - abdomen: report reviewed and image reviewed CT scan - pelvis: report reviewed and image reviewed Assessment & Plan Problem List (1) Acute appendicitis: Qualifiers: Acute appendicitis type: unspecified acute appendicitis type Qualified Code(s): K35.80 - Unspecified acute appendicitis Status: Acute Plan Will take patient to the operating room for laparoscopic possible open appendectomy. Risks include but not limited to infection, bleeding, injury to bowel, bladder, surround neurovascular structures, abdominal sepsis and or abdominal abscess, need for further procedure and or operation discussed with the patient. Benefits and alternatives explained to her, all her questions answered, she agreed and consented to proceed with the operation. Quality Measures Quality Measures none
--- NOTE | 2024-12-07 13:23 | SUR.PHASEI ---
1353: Pt. wakes to name then drifts back to sleep, vitals stable, breathing unlabored, no complaint of pain or nausea, x3 dermabond sites to ABD CDI, no active bleed noted, report received from David WAY and Abhi GONZALEZ.
[2024-12-07] MEDS: ACETAMINOPHEN IVPB 1,000 MG/100 ML VIAL 250 MG IV (13:30)
--- NOTE | 2024-12-07 13:49 | ESOP_ITS ---
Date of Procedure 12/07/24 Pre Op Diagnosis Acute appendicitis Post Op Diagnosis Acute appendicitis Procedure Laparoscopic appendectomy Findings Inflamed, dilated and hyperemic retrocecal appendix without perforation Procedure Description Patient was brought into the operating room in supine position. After administration of general endotracheal anesthesia, abdomen was prepped and draped in standard surgical manner. A Veress needle was inserted through the umbilicus and pneumoperitoneum was obtained up to 15 mmHg. The Veress needle w as removed and a 5 mm umbilical incision was made. A 5 mm trocar was placed and laparoscopic camera was inserted. Under direct visualization a laparoscopic camera a 5 mm trocar placed in suprapubic region and a 10 mm trocar placed in left lower quadrant. The abdomen was inspected, the cecum was identified and followed until the appendix was identified. The appendix was noted to be inflamed, dilated and hyperemic without perforation. The appendix was retrocecal. A window was created between the appendix and mesoappendix and the appendix was divided near the appendix and cecal junction with blue Endo CHEYANNE stapling device. The mesoappendix was divided with rueda Endo CHEYANNE stapling device. The appendix was placed inside an Endo Catch and removed from the abdomen utilizing left lower quadrant trocar site. Abdomen and pelvis copiously and thoroughly washed and irrigated, all the fluids were suctioned and the suctioned fluid returned clear. Hemostasis was adequate and satisfactory, sta ple lines were intact without bleeding or any leakage. Left lower quadrant trocar sites fascial defect was closed with 0 Vicryl using Endo closure device. Instruments and trocars removed, pneumoperitoneum was evacuated and the incisions closed with 4-0 Monocryl subcuticular fashion. Instruments, needles and sponge counts were reported to be correct ??2. Patient tolerated the procedure well, was extubated, breathing spontaneously and without difficulty and was transferred to postanesthesia care in stable condition. Anesthesia GETA and local Pathology / specimen Other (Appendix) Estimated Blood Loss 10 Condition Stable Disposition PACU Surgeon Landen Velasco MD Surgical Staff Operation Date: 12/07/24 13:15 Case Staff FINANCIAL PROFESSIONAL: Amador Monreal
[2024-12-07] MEDS: fentaNYL CIT INJ 50 mCg/ML AMP 2ML IVP ×4 (14:00→14:33)
[2024-12-07] MEDS: KETOROLAC INJ 30 MG/ML VIAL IVP (14:21)
--- NOTE | 2024-12-07 15:20 | SUR.PHASEII ---
1520: Pt. AAOx4, vitals stable, breathing unlabored, no complaint of pain or nausea, dressing to ABD CDI, no active bleed noted, pt. tolerated sips of water well, pt. ambulated to wheelchair with steady gait and no assist, no complications. Gave discharge instructions to the pt. and her ride, both verbalized understanding and had no further questions. Pt. left with all personal belongings.
[2024-12-07 15:54] LABS: Lithium 0.49 mEq/L (1.00-1.20)
== END 2024-12-07 15:20 | disposition home or self-care (01) ==
LOC: SERX 11:51 → S2EX 12:09
PROVIDERS: Nurse Practitioner Family; Registered Nurse General Practice; Emergency Provider Family Medicine; PCP Nurse Practitioner Family; Referring Provider Surgery; Visit Provider Surgery
PROC: 0DTJ4ZZ Resection of Appendix, Percutaneous Endoscopic Approach (ICD-10-PCS; CPT 44970; principal; 2024-12-07 13:00)
DX: K35.30 Acute appendicitis with localized peritonitis, without perforation or gangrene (principal); E11.9 Type 2 diabetes mellitus without complications; F20.9 Schizophrenia, unspecified; F31.9 Bipolar disorder, unspecified; E66.9 Obesity, unspecified; Z68.32 Body mass index [BMI] 32.0-32.9, adult
CPT/HCPCS: 44970; 36415; 74176; 80053; 80178; 81001; 81025; 83690; 85025; 87086; 96374; 96375; 99283; A4217; A4649; J0131; J0694; J1885; J2250; J2270; J2405; J2704; J3010; J3490; J7030; J7050; Q0162; A9270

== ENCOUNTER 2024-12-18 13:04 | Emergency (ER) | payer MEDICAID, SELFPAY ==
[2024-12-18 13:05] VITALS: PULSE 84; RESP 16; O2SAT 98
--- NOTE | 2024-12-18 13:33 | PD.EDABDPN ---
ED Abdominal Pain RME/HPI General Chief Complaint: Flu Like Symptoms Stated complaint: Cough, SOB X 2 days, chest pain, dizzy Time seen by provider: 12/18/24 13:33 Arrival date/time: 12/18/24 13:04 RME / HPI RME / HPI narrative: See [facility] for Dr. Oliveira's HPI Documentation. Related Data Previous Rx's ?Medication ?Instructions ?Recorded metformin 500 mg tablet 500 mg PO BID #60 tabs 01/27/24 olanzapine 10 mg tablet 10 mg PO QAM #30 tabs 01/27/24 olanzapine 20 mg tablet 20 mg PO QPM #30 tabs 01/27/24 pantoprazole 20 mg tablet,delayed 20 mg PO QDAY #30 tabs 01/27/24 release prazosin 5 mg capsule 5 mg PO QPM #30 caps 01/27/24 quetiapine 50 mg tablet 50 mg PO ONCE HS #30 tabs 01/27/24 amoxicillin 875 mg-potassium 1 tab PO BID #14 tabs 08/06/24 clavulanate 125 mg tablet omeprazole 40 mg capsule,delayed 40 mg PO QDAY #20 caps 09/21/24 release docusate sodium 100 mg capsule 100 mg PO BID #20 caps 12/07/24 (Colace) hydrocodone 5 mg-acetaminophen 325 1 tab PO Q6H PRN pain (scale score 10/25 mg tablet 7-10) #10 tabs ibuprofen 600 mg tablet 600 mg PO Q8H PRN pain (scale 12/07/24 score 4-6) #15 tabs acetaminophen 300 mg-codeine 30 mg 2 tab PO Q8H PRN pain #20 tabs 12/18/24 tablet ondansetron 4 mg disintegrating 4 mg PO TID PRN nausea and 12/18/24 tablet vomiting 30 days #10 tabs Allergies Allergy/AdvReac Type Severity Reaction Status Date / Time Penicillins Allergy Unknown Verified 12/18/24 13:10 Review of Systems Review of Systems Systems Reviewed: All systems reviewed, normal except as documented Past Medical History Past Medical History NEUROLOGIC: Positive Seizures CARDIAC: Positive Hypercholesterolemia RESPIRATORY: Positive Asthma GASTROINTESTINAL: Positive Gastroesophageal Reflux Disease PSYCHO/SOCIAL: Positive Schizophrenia, Bipolar Disorder, Depression and Anxiety Family History FAMILY HISTORY: Positive Family Cancer (PT'S MOM LYMPH NODE CANCER, PT'S BROTHER BREAST CANCER) Surgical History SURGICAL: Positive Section Social History SMOKING STATUS: Current every day smoker SUBSTANCE USE: former substance user ED Exam Narrative Physical exam: See MDM for Dr. Oliveira's HPI Documentation. Course Quality Measures none Orders Category Date Time Status Bedside COVID-19 Antigen Test NOW Care 12/18/24 13:[address] Screening NOW Care 12/18/24 13:36 Completed EKG (ED ONLY) *Do not use* NOW Care 12/18/24 13:36 Completed Saline [Insert IV] NOW Care 12/18/24 13:35 Completed Straight [In and Out Catheter] X1 Care 12/18/24 13:[address] abdomen pelvis w con Stat Exams 12/18/24 13:[address] angio chest Stat Exams 12/18/24 13:36 Completed EKG (ED Only) Stat Exams 12/18/24 13:36 Draft XR chest 1V portable Stat Exams 12/18/24 13:36 Completed Amylase Stat Lab 12/18/24 14:05 Completed BNP [B-Type Natriuretic Peptide] Stat Lab 12/18/24 14:05 Completed Bilirubin,Direct Stat Lab 12/18/24 14:05 Completed Blood Culture (Lab) Stat Lab 12/18/24 14:10 Results CBC Stat Lab 12/18/24 14:05 Completed CMP [Comprehensive Metabolic Panel] Stat Lab 12/18/24 14:05 Completed CRP [C-Reactive Protein] Stat Lab 12/18/24 14:05 Completed D-Dimer Stat Lab 12/18/24 14:05 Completed Drug Screen,Urine Stat Lab 12/18/24 14:42 Completed ESR [Sed Rate (ESR)] Stat Lab 12/18/24 14:05 Completed HCG,Qualitative Serum Stat Lab 12/18/24 14:05 Completed Influenza A & B Rapid Panel Stat Lab 12/18/24 13:42 Completed Lactate (Lactic Acid) Stat Lab 12/18/24 14:05 Completed Lipase Stat Lab 12/18/24 14:05 Completed Magnesium Stat Lab 12/18/24 14:05 Completed Procalcitonin Stat Lab 12/18/24 14:05 Completed TSH [Thyroid Stimulating Hormone] Stat Lab 12/18/24 14:05 Completed Troponin I Stat Lab 12/18/24 14:05 Completed UA, C/S IF [Urinalysis, C/S if Indicated] Stat Lab 12/18/24 14:42 Completed Ketorolac Inj [Toradol Inj] Med 12/18/24 13:35 Discontinued 30 mg IVP X1 ONE Ondansetron Inj [Zofran Inj] Med 12/18/24 13:35 Discontinued 4 mg IVP X1 ONE Sodium Chloride 0.9% 1000 ml [Ns] 1,000 ml Med 12/18/24 13:35 Discontinued IV 999 mls/hr Vital Signs Vital signs: Vital Signs Temperature 98.2 F 12/18/24 13:36 Pulse Rate 83 12/18/24 13:36 Respiratory Rate 20 12/18/24 13:36 Blood Pressure 126/87 H 12/18/24 13:36 Pulse Oximetry (%) 97 12/18/24 13:36 Oxygen Delivery Method Room Air 12/18/24 13:36 Abdominal Pain MDM MDM Narrative MDM Narrative:: This section includes all my notes and documentations, including HPI, PE, and ED course. Homero Oliveira MD HPI: 44-year-old female that just had an appendectomy 5 days ago comes in continued abdominal pain and subjective fever and cough. No other complaints. ROS: All negative except as documented in HPI. Physical Exam: General: Alert and oriented. No acute distress when remaining still. Eyes: Conjunctivae and lids clear. ENT: No nasal congestion. Neck: Supple. Heart: RRR. Lungs: No respiratory distress. Good air movement. No rhonchi, wheezing, rales. Abdomen: Soft with equivocal tenderness. Normal bowel sounds. No distension. No rebound or guarding. Back: No CVA tenderness. Skin: Warm and dry. Neuro: Alert and oriented X 3. I reviewed all diagnostic test results: My interpretation of the EKG is: Sinus rhythm (93 bpm) with nonspecific ST-T changes. My interpretation of the chest x-ray is: No active disease. My review of the abdomen/pelvis CT report is: NAD. My review of the chest CTA report is: No PE. Blood tests and urine tests unremarkable. Covid/Influenza negative. At this point, diagnoses include: Postoperative pain Treatment here included: Ketorolac 30 mg IV Zofran IV IVF She felt much better. Recommended supportive care. Based on my best medical judgment, made decision no further evaluation or treatment indicated at this time. Patient understands and agrees to the discharge instructions customized and printed, see below. Discharge Instructions from Dr. Oliveira printed for you: 1. After evaluation, there is no postsurgical infection or complication. 2. For good hydration, increase oral fluid and maintain clear urine. If dark or yellow, increase oral fluid. 3. Zofran for nausea/vomiting. Tylenol with codeine for severe pain. 4. See your surgeon who performed the surgery on 12/20/2024 for recheck. Ask to review all test results and official radiology reports, to make sure you receive all necessary follow-ups and monitoring. 5. Seek immediate medical care with worsening or with any concerns. Homero Oliveira MD Patient data External records reviewed:: [facility] previous records Clinical information provided by:: patient Social determinants that could affect healthcare access:: none Patient has the following chronic illnesses:: Asthma, bipolar disorder, and recent appendectomy 5 days ago. How is presenting disease/condition affected by chronic disease/condition?: exacerbated by Evaluation data The following diagnostics were reviewed and interpreted by me:: lab results, radiology exam(s) and EKG tracing(s) (My interpretation of the EKG is: Sinus rhythm (93 bpm) with nonspecific ST-T changes. Homero Oliveira MD) Lab and/or radiology exams considered but not ordered:: none Interpretation Summary: I reviewed all diagnostic test results: My interpretation of the EKG is: Sinus rhythm (93 bpm) with nonspecific ST-T changes. My interpretation of the chest x-ray is: No active disease. My review of the abdomen/pelvis CT report is: NAD. My review of the chest CTA report is: No PE. Blood tests and urine tests unremarkable. Covid/Influenza negative. Medications / Prescriptions Medications or Prescriptions considered but not ordered:: none Medication administrations:: Medication Administration History Discontinued Medications Sodium Chloride (Ns) 1,000 mls @ 999 mls/hr IV .Q1H1M ONE Stop: 12/18/24 14:35 Last Infusion: 12/18/24 15:30 Dose: Infused Documented By: Admin: 12/18/24 14:07 Dose: 999 mls/hr Documented By: EF Ketorolac Tromethamine (Ketorolac Inj 30 Mg/Ml Vial) 30 mg IVP X1 ONE Stop: 12/18/24 13:36 Last Admin: 12/18/24 14:07 Dose: 30 mg Documented By: EF Ondansetron HCl (Ondansetron Inj 2 Mg/Ml Inj 2 Ml) 4 mg IVP X1 ONE; Protocol Stop: 12/18/24 13:36 Last Admin: 12/18/24 14:07 Dose: 4 mg Documented By: EF Treatment here included: Ketorolac 30 mg IV Zofran IV IVF Consultations Consultation(s) initiated? (list below): No Diagnosis Differential diagnosis abdominal pain: calculus of kidney, constipation, diverticulitis, endometriosis, gastroenteritis, pancreatitis, small bowel obstruction and other (Postoperative infection, intra-abdominal abscess, Pneumonia, PE) Most likely diagnosis given after review of the tests above:: Postoperative pain Admission Indicated Admission indicated?: not indicated Explain why admission is indicated or not indicated:: With no condition needing urgent intervention, there was no indication for admission. Admission Request Was there a request for admission?: No Disposition Plan Disposition Plan: Discharge Discharge Attestation Discharge Attestation: The patient and all family members were given an opportunity to ask questions and understood the discharge instructions. Discharge instructions specifically effects, indications for sooner follow up or return to the emergency department, and the expected course of current diagnosis. Patient condition: Stable Discharge Plan Plan Patient Disposition: HOME (Self Care) Prescriptions/Referrals Prescriptions/Med Rec: New acetaminophen-codeine 300-30 mg tablet 2 tab PO Q8H MDD 6 PRN (Reason: pain) Qty: 20 0RF ondansetron 4 mg tablet,disintegrating 4 mg PO TID PRN (Reason: nausea and vomiting) 30 Days Qty: 10 0RF No Action olanzapine 20 mg tablet 20 mg PO QPM Qty: 30 0RF olanzapine 10 mg tablet 10 mg PO QAM Qty: 30 0RF metformin 500 mg tablet 500 mg PO BID Qty: 60 0RF pantoprazole 20 mg tablet,delayed release (DR/EC) 20 mg PO QDAY Qty: 30 0RF quetiapine 50 mg tablet 50 mg PO ONCE HS Qty: 30 0RF prazosin 5 mg capsule 5 mg PO QPM Qty: 30 0RF amoxicillin-pot clavulanate 875-125 mg tablet 1 tab PO BID Qty: 14 0RF omeprazole 40 mg capsule,delayed release(DR/EC) 40 mg PO QDAY Qty: 20 0RF docusate sodium [Colace] 100 mg capsule 100 mg PO BID Qty: 20 0RF hydrocodone-acetaminophen 5-325 mg tablet 1 tab PO Q6H MDD 4 PRN (Reason: pain (scale score 7-10)) Qty: 10 0RF ibuprofen 600 mg tablet 600 mg PO Q8H PRN (Reason: pain (scale score 4-6)) Qty: 15 0RF Problem List Clinical Impression: Postoperative pain Patient/Caregiver Discharge Instructions Discharge Activity: activity as tolerated Education Materials: After an Appendectomy Additional Instructions: Discharge Instructions from Dr. Oliveira printed for you: 1. After evaluation, there is no postsurgical infection or complication. 2. For good hydration, increase oral fluid and maintain clear urine. If dark or yellow, increase oral fluid. 3. Zofran for nausea/vomiting. Tylenol with codeine for severe pain. 4. See your surgeon who performed the surgery on 12/20/2024 for recheck. Ask to review all test results and official radiology reports, to make sure you receive all necessary follow-ups and monitoring. 5. Seek immediate medical care with worsening or with any concerns. Print Language: Fijian Stand Alone Forms: Tessie Award Info., Patient Portal Info Letter
[2024-12-18 13:36] VITALS: BP 126/87; PULSE 83; RESP 20; TEMP 36.8; O2SAT 97; BMI 33.0
--- NOTE | 2024-12-18 13:36 | XR_ITS ---
Examination: CTA chest with intravenous contrast 2-D reconstructions 3-D reconstructions, vascular Date and time of exam: 12/18/2024, 2:30 p.m. INDICATION: Shortness of breath CTDI: vol (mGy) 12.6 DLP: (mGycm) 458 Technique: Multiple axial sections of the thorax have been obtained. 3 mm slice thickness, from below the hemidiaphragms to above the apices of the lungs. Mediastinal and lung density settings have been obtained. 2-D sagittal and coronal reconstructions. 3-D angiographic renderings, 3-D volume renderings, 3D post processing, vascular maximum intensity projections obtained. Low dose protocols were performed. One or more of the following dose reduction techniques were used; automated exposure control, adjustment of the mA and/or KV according to patient size, use of iterative reconstruction technique. Findings: Pulmonary arterial tree opacifies normally without evidence of filling defects. Thoracic aorta is within normal limits. Visualized cardiac structures appear normal. Scattered bibasilar atelectasis with trace left pleural effusion. Lungs otherwise clear. No acute bony abnormality. IMPRESSION: No evidence of PE. Bibasilar atelectasis with trace left pleural effusion
--- NOTE | 2024-12-18 13:36 | XR_ITS ---
Examination: CT abdomen with intravenous contrast. CT pelvis with intravenous contrast. 2-D sagittal and coronal reconstructions. Date and time of exam: 12/18/2024 2:28 PM COMPARISON: 12/07/2024 Indication: Status post appendectomy CTDI: vol (mGy) 12.6 DLP: (mGycm) 769 Technique: Axial sections of the abdomen and pelvis have been obtained post contrast intravenous injection 3 mm slice thickness. 2-D coronal and sagittal reconstructions were obtained. Low dose protocols were performed. One or more of the following dose reduction techniques were used; automated exposure control, adjustment of the mA and/or KV according to patient size, use of iterative reconstruction technique. Intravenous injection Isovue 370/100 mL Findings: Postoperative changes right lower quadrant in the region of the cecum. Expected postoperative changes with small foci of air likely related to surgery. Minimal residual inflammatory changes. No evidence of fluid collection or abscess. . Imaging through the abdomen demonstrates a normal-appearing liver, spleen, pancreas, gallbladder and stomach. The adrenal glands are unremarkable. Both kidneys are normal with respect to size shape and position. There is no evidence of a renal mass, nephrolithiasis or hydronephrosis. The abdominal aorta is unremarkable. There is no periaortic lymphadenopathy. The small bowel loops and colon have a normal appearance. The urinary bladder is not distended and appears entirely normal. There is no evidence of an abdominal wall hernia. Mild inflammatory changes anterior abdominal wall superficial soft tissue may be related to recent surgery. The osseous structures appear intact. Impression: Expected postoperative changes in the right lower quadrant without evidence of abscess or abnormal fluid collections.
--- NOTE | 2024-12-18 13:36 | XR_ITS ---
Exam: Chest 1 view, AP Date and time of exam: 12/18/2024, 1:44 p.m. Comparison: 09/21/2024 INDICATION: Shortness of breath Findings: Normal heart size. No mediastinal adenopathy. No acute fracture No pulmonary edema or pneumonia. Impression: No active disease.
--- NOTE | 2024-12-18 13:36 | EKG_ITS ---
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
[2024-12-18 13:50] VITALS: BP 117/81; PULSE 87; RESP 19; TEMP 36.3; O2SAT 97
[2024-12-18] MEDS: ONDANSETRON INJ 2 MG/ML INJ 2 ML 4 MG IVP (14:07)
[2024-12-18] MEDS: SODIUM CHLORIDE 0.9% 1000 ML 1,000 ML 999 ML IV (14:07)
[2024-12-18] MEDS: KETOROLAC INJ 30 MG/ML VIAL IVP (14:07)
[2024-12-18 14:20] LABS: Lactate (Lactic Acid) 1.1 mMol/L (0.4-2.0)
[2024-12-18 14:25] LABS: Basophils # (Auto) 0.1 Thou/mm3 (0.0-0.2); Basophils % (Auto) 1 % (0-2.5); Eosinophils # (Auto) 0.5 Thou/mm3 (0.0-0.5); Eosinophils % (Auto) 4 % (0-10); Hematocrit 39.3 % (36.0-46.0); Hemoglobin 13.0 g/dL (12.0-16.0); Immature Granulocytes Auto 0.04 Thou/mm3 (0.00-0.00); Lymphocytes # (Auto) 3.6 Thou/mm3 (1.0-4.8); Lymphocytes % (Auto) 29 % (10-50); Mean Corpuscular HGB Conc 33.1 g/dl (31.0-37.0); Mean Corpuscular Hemoglobin 28.8 pg (25.0-35.0); Mean Corpuscular Volume 87 fL (80-100); Monocytes # (Auto) 0.7 Thou/mm3 (0.0-0.8); Monocytes % (Auto) 6 % (0-12); Neutrophils # (Auto) 7.2 Thou/mm3 (1.8-7.7); Neutrophils % (Auto) 60 % (37-80); Nucleated Red Blood Cell # 0.00 Thou/mm3 (0.00-0.00); Nucleated Red Blood Cell % 0 /100 WBC (0); Platelet Count 460 Thou/mm3 (140-440); RDW Standard Deviation 41.3 fL (36.4-46.3); Red Blood Count 4.51 Miln/mm3 (4.00-5.20); White Blood Count 12.1 Thou/mm3 (3.6-11.0)
[2024-12-18 14:35] LABS: Influenza A Ag Negative; Influenza B Ag Negative
[2024-12-18 14:42] LABS: D-Dimer 634 ng/mL (<600)
[2024-12-18 14:45] LABS: Sed Rate (ESR) 29 mm/hr (0-20)
[2024-12-18 14:58] LABS: Collection Type, Urine Clean Catch
[2024-12-18 15:00] LABS: B-Type Natriuretic Peptide 114 pg/mL (0-100)
[2024-12-18 15:07] LABS: Alanine Aminotransferase 26 U/L (10-49); Albumin, Serum 4.6 gm/dL (3.5-5.0); Albumin/Globulin Ratio 1.8 (1.2-2.2); Alkaline Phosphatase 67 U/L (46-116); Amylase 83 U/L (30-118); Anion Gap 8 (7-16); Aspartate Amino Transferase 24 U/L (0-34); BUN/Creatinine Ratio 13 Ratio (12-20); Bilirubin,Direct < 0.1 mg/dL (0.0-0.3); Bilirubin,Total 0.2 mg/dL (0.3-1.2); Blood Urea Nitrogen 13 mg/dL (9-23); C-Reactive Protein < 0.5 mg/dL (0.0-0.9); Calcium 10.0 mg/dL (8.3-10.6); Calcium (Corrected) 10.0 mg/dL (8.5-10.1); Carbon Dioxide 23.7 mMol/L (20.0-31.0); Chloride 107 mMol/L (98-107); Creatinine (Component) 1.0 mg/dL (0.6-1.3); Estimated Creatinine Clearance 98.9 mL/min (>60); Globulin 2.5 gm/dL (2.3-3.5); Glucose 91 mg/dL (74-106); Lipase 33 U/L (12-53); Magnesium 1.8 mg/dL (1.6-2.6); Osmolality,Calculated 277 (275-295); Potassium 3.9 mMol/L (3.4-5.1); Sodium 139 mMol/L (136-145); Thyroid Stimulating Hormone 1.38 uIU/mL (0.55-4.78); Total Protein 7.1 gm/dL (5.7-8.2); Troponin I < 0.002 ng/mL (0.0-0.045); eGFR > 60 See Note
[2024-12-18 15:07] LABS: Bilirubin,Urine Negative (Negative); Blood,Urine Negative (Negative); Clarity,Urine Clear (Clear/Hazy); Color,Urine Lt-Yellow (Lt Yel-Yel); Culture Indicated,Urine Not Indicated; Glucose, Urine Negative (Negative); Ketones,Urine Negative (Negative); Leukocyte Esterase,Urine Negative (Negative); Nitrite,Urine Negative (Negative); PH,Urine 6.0 (5.0-7.0); Protein,Urine Negative (Neg - Trace); RBC,Urine 2 /hpf (0-3); Specific Gravity,Urine 1.019 (1.001-1.035); Squamous Epithelial Cell,Urine 3 /hpf (0-5); Urobilinogen,Urine Negative mg/dL (0.0-1.0); WBC,Urine < 1 /hpf (0-5)
[2024-12-18 15:08] LABS: Procalcitonin < 0.04 ng/ml (0.0-0.49)
[2024-12-18 15:18] LABS: HCG,Qualitative Serum Negative
[2024-12-18 15:27] LABS: Amphetamine/Methamp Scrn,U Negative (Negative); Barbiturate Screen,Urine Negative (Negative); Benzodiazepines Screen,Urine Negative (Negative); Benzoylecgonine Screen, Ur Negative (Negative); Fentanyl Screen,Urine Negative (Negative); Opiate Screen,Urine Negative (Negative); THC Screen,Urine Negative (Negative)
[2024-12-18 15:50] VITALS: BP 118/88; PULSE 72; RESP 18; TEMP 36.4; O2SAT 96
== END 2024-12-18 16:10 | disposition home or self-care (01) ==
LOC: SERX 16:05
PROVIDERS: Emergency Provider Emergency Medicine
DX: G89.18 Other acute postprocedural pain (principal)
CPT/HCPCS: 36415; 71045; 71275; 74177; 80053; 80307; 81001; 82150; 82248; 83605; 83690; 83735; 83880; 84145; 84443; 84484; 84703; 85025; 85379; 85652; 86140; 87040; 87502; 87635; 93005; 96361; 96374; 96375; 99284; A4649; J1885; J2405; J7030; Q9967

== ENCOUNTER 2024-12-23 17:51 | Emergency (ER) | payer MEDICAID, SELFPAY ==
[2024-12-23 17:52] VITALS: PULSE 100; RESP 18; O2SAT 97; BMI 33.0
[2024-12-23 18:37] VITALS: BP 118/84; PULSE 94; RESP 18; TEMP 36.8; O2SAT 97
--- NOTE | 2024-12-23 19:05 | XR_ITS ---
Examination: CT abdomen with intravenous contrast CT pelvis with intravenous contrast 2-D coronal reconstructions 2-D sagittal reconstructions Date and time of exam: December 23, 2024, 2042 hours, comparison December 18, 2024 INDICATIONS: Post appendectomy 3 weeks ago, lower abdominal pain and blood in the stool today. CTDI: vol (mGy) 9.38 DLP: (mGycm) 593 Technique: Multiple axial sections of the abdomen and pelvis have been obtained. 64 slice high-resolution scanner used. 3 mm axial sections have been obtained, post intravenous injection 60 cc Isovue-370 2-D sagittal, coronal reconstructions obtained. Low dose protocols were performed. One or more of the following dose reduction techniques were used; automated exposure control, adjustment of the mA and/or KV according to patient size, use of iterative reconstruction technique. Findings: Minimal left pleural disease No focal liver or splenic lesions Contracted gallbladder No pancreatic edema No renal or ureteral calculi Aorta normal size Absent appendix No bowel obstruction or diverticulitis 14 mm right ovarian follicular cyst Contracted urinary bladder Osseous structures are intact IMPRESSION: Absent appendix No abdominal or pelvic abscess No nonspecific colitis or proctitis pattern 14 mm right ovarian follicular cyst
--- NOTE | 2024-12-23 19:07 | PD.EDABDPN ---
ED Abdominal Pain RME/HPI General Chief Complaint: Abdominal Pain Stated complaint: ABD PAIN Time seen by provider: 12/23/24 19:00 Arrival date/time: 12/23/24 17:51 44-year-old female patient with no significant past medical history, came in for evaluation regarding lower abdominal pain. Onset of symptoms earlier today sudden onset of lower abdominal pain, described as dull ache, associated with 2 episodes of bowel movement with blood-tinged stool. Patient denies any rectal pain. Denies any rectal swelling. Denies any fever vomiting or other complaints. No medication was taken prior to ER visit patient starting any blood thinner. Related Data Previous Rx's ?Medication ?Instructions ?Recorded metformin 500 mg tablet 500 mg PO BID #60 tabs 01/27/24 olanzapine 10 mg tablet 10 mg PO QAM #30 tabs 01/27/24 olanzapine 20 mg tablet 20 mg PO QPM #30 tabs 01/27/24 pantoprazole 20 mg tablet,delayed 20 mg PO QDAY #30 tabs 01/27/24 release prazosin 5 mg capsule 5 mg PO QPM #30 caps 01/27/24 quetiapine 50 mg tablet 50 mg PO ONCE HS #30 tabs 01/27/24 amoxicillin 875 mg-potassium 1 tab PO BID #14 tabs 08/06/24 clavulanate 125 mg tablet omeprazole 40 mg capsule,delayed 40 mg PO QDAY #20 caps 09/21/24 release docusate sodium 100 mg capsule 100 mg PO BID #20 caps 12/07/24 (Colace) hydrocodone 5 mg-acetaminophen 325 1 tab PO Q6H PRN pain (scale score 12/07/24 mg tablet 7-10) #10 tabs ibuprofen 600 mg tablet 600 mg PO Q8H PRN pain (scale 12/07/24 score 4-6) #15 tabs acetaminophen 300 mg-codeine 30 mg 2 tab PO Q8H PRN pain #20 tabs 12/18/24 tablet ondansetron 4 mg disintegrating 4 mg PO TID PRN nausea and 12/18/24 tablet vomiting 30 days #10 tabs hydrocortisone acetate 25 mg 25 mg NV BID #24 ea 12/23/24 rectal suppository (Anusol-HC) ibuprofen 800 mg tablet 800 mg PO TID PRN pain #30 tabs 12/23/24 polyethylene glycol 3350 17 gram 17 g PO QDAY #14 ea 12/23/24 oral powder packet (Miralax) Allergies Allergy/AdvReac Type Severity Reaction Status Date / Time Penicillins Allergy Unknown Verified 12/18/24 13:10 Review of Systems Review of Systems Narrative Review of Systems: Review of system reviewed and within normal limits except mentioned in HPI ED Exam Narrative Physical exam: VITAL SIGNS: Reviewed. GENERAL APPEARANCE: Alert and interactive, follows commands, no acute distress, HEAD AND FACE: Non-traumatic. ENT: PERRL, pink conjunctivitis, eyelid no trauma, Mucous membrane moist. NECK: Supple, nontender, no nuchal rigidity. CHEST: No tenderness, no crepitus, no paradoxical movement, no retractions. LUNGS: Clear, well ventilated, symmetric, no rales, no wheezing, no ronchi, no stridor, good breath sounds bilaterally. HEART: Regular rate, regular rhythm, no murmur, no gallops. ABDOMEN: Soft, positive bowel sounds, nondistended, no guarding, lower abdominal tenderness, no rebound, no masses, RECTAL: Deferred. GENITAL: Deferred. NEUROLOGICAL: Gross motor function intact sensory function intact, Appropriate for age. MUSCULOSKELETAL: low back nontender, full range of motion. EXTREMITIES: Nontender, full range of motion. SKIN: Color pink, dry, no rash, no lacerations, no abrasions, no contusions. LYMPHATICS: Deferred. Course Quality Measures none Orders Category Date Time Status CT Screening NOW Care 12/23/24 19:[address] abdomen pelvis w con Stat Exams 12/23/24 19:05 Completed CBC Stat Lab 12/23/24 19:29 Completed Comprehensive Metabolic Panel Stat Lab 12/23/24 19:29 Completed HCG Qualitative,Urine Stat Lab 12/23/24 19:28 Completed Lipase Stat Lab 12/23/24 19:29 Completed Prothrombin Time with INR Stat Lab 12/23/24 19:29 Completed UA, C/S IF [Urinalysis, C/S if Indicated] Stat Lab 12/23/24 19:28 Completed Hydrocortisone Enema [Cortenema] Med 12/23/24 19:05 Discontinued 100 mg NV X1 ONE Ketorolac Inj [Toradol Inj] Med 12/23/24 21:29 Once 30 mg IM X1 ONE Vital Signs Vital signs: Vital Signs Temperature 98.3 F 12/23/24 18:37 Pulse Rate 94 12/23/24 18:37 Respiratory Rate 18 12/23/24 18:37 Blood Pressure 118/84 12/23/24 18:37 Pulse Oximetry (%) 97 12/23/24 18:37 Oxygen Delivery Method Room Air 12/23/24 18:37 Abdominal Pain MDM MDM Narrative [facility] Narrative:: 44-year-old female patient with no significant past medical history, came in for evaluation regarding lower abdominal pain. Onset of symptoms earlier today sudden onset of lower abdominal pain, described as dull ache, associated with 2 episodes of bowel movement with blood-tinged stool. Patient denies any rectal pain. Denies any rectal swelling. Denies any fever vomiting or other complaints. No medication was taken prior to ER visit patient starting any blood thinner. Patient patient's workup today all came back unremarkable, no UTI no anemia. CT scan of the abdomen pelvis showed no acute pathology except for ovarian cyst results discussed with the patient. Patient was given Toradol IM with significant improvement of pain. Patient is stable for discharge home Patient data External records reviewed:: None Clinical information provided by:: none Social determinants that could affect healthcare access:: none Patient has the following chronic illnesses:: None How is presenting disease/condition affected by chronic disease/condition?: no chronic disease Evaluation data The following diagnostics were reviewed and interpreted by me:: lab results and radiology exam(s) Lab and/or radiology exams considered but not ordered:: None Interpretation Summary: See results [facility] Medications / Prescriptions Medications or Prescriptions considered but not ordered:: None Medication administrations:: Medication Administration History Ketorolac Tromethamine (Ketorolac Inj 30 Mg/Ml Vial) 30 mg IM X1 ONE Stop: 12/23/24 21:30 Discontinued Medications Hydrocortisone (Hydrocortisone Enema 100 Mg/60 Ml Btl) 100 mg NV X1 ONE Stop: 12/23/24 19:06 Last Admin: 12/23/24 19:46 Dose: Not Given Documented By: LORY Non-Admin Reason: Cancelled by Provider Toradol IM Consultations Consultation(s) initiated? (list below): No Diagnosis Differential diagnosis abdominal pain: abdominal pain, diverticulitis and other (Bright red blood per rectum) Most likely diagnosis given after review of the tests above:: Bright red blood per rectum, ovarian cyst Admission Indicated Admission indicated?: not indicated Admission Request Was there a request for admission?: No Disposition Plan Disposition Plan: Discharge Discharge Attestation Discharge Attestation: The patient was given an opportunity to ask questions and understood the discharge instructions. Discharge instructions specifically effects, indications for sooner follow up or return to the emergency department, and the expected course of current diagnosis. Patient condition: Stable Discharge Plan Plan Patient Disposition: HOME (Self Care) Discharge Disposition comment: Stable Prescriptions/Referrals Prescriptions/Med Rec: New hydrocortisone acetate [Anusol-HC] 25 mg suppository 25 mg NV BID Qty: 24 0RF polyethylene glycol 3350 [Miralax] 17 gram powder in packet 17 g PO QDAY Qty: 14 0RF ibuprofen 800 mg tablet 800 mg PO TID PRN (Reason: pain) Qty: 30 0RF No Action olanzapine 20 mg tablet 20 mg PO QPM Qty: 30 0RF olanzapine 10 mg tablet 10 mg PO QAM Qty: 30 0RF metformin 500 mg tablet 500 mg PO BID Qty: 60 0RF pantoprazole 20 mg tablet,delayed release (DR/EC) 20 mg PO QDAY Qty: 30 0RF quetiapine 50 mg tablet 50 mg PO ONCE HS Qty: 30 0RF prazosin 5 mg capsule 5 mg PO QPM Qty: 30 0RF amoxicillin-pot clavulanate 875-125 mg tablet 1 tab PO BID Qty: 14 0RF omeprazole 40 mg capsule,delayed release(DR/EC) 40 mg PO QDAY Qty: 20 0RF docusate sodium [Colace] 100 mg capsule 100 mg PO BID Qty: 20 0RF hydrocodone-acetaminophen 5-325 mg tablet 1 tab PO Q6H MDD 4 PRN (Reason: pain (scale score 7-10)) Qty: 10 0RF ibuprofen 600 mg tablet 600 mg PO Q8H PRN (Reason: pain (scale score 4-6)) Qty: 15 0RF acetaminophen-codeine 300-30 mg tablet 2 tab PO Q8H MDD 6 PRN (Reason: pain) Qty: 20 0RF ondansetron 4 mg tablet,disintegrating 4 mg PO TID PRN (Reason: nausea and vomiting) 30 Days Qty: 10 0RF Referrals: No Primary/Family,Physician [Primary Care Provider] - In 1 week Problem List Clinical Impression: Bright red blood per rectum, Ovarian cyst Patient/Caregiver Discharge Instructions Discharge Activity: activity as tolerated Education Materials: Ovarian Cysts, Understanding Rectal Bleeding Additional Instructions: Thank you for the opportunity for serving you today. You are stable for discharged . You are advised to: Follow-up with your PCP in 1 to 2 days Return to ED for worsening of symptoms Increase oral fluids Take medication as prescribed Print Language: Croatian Stand Alone Forms: Tessie Award Info., Patient Portal Info Letter PA/ESTEBAN Supervising Physician PA/ESTEBAN Supervising Physician: MD Roxanne
[2024-12-23 19:52] LABS: Collection Type, Urine Clean Catch
[2024-12-23 19:53] LABS: Basophils # (Auto) 0.1 Thou/mm3 (0.0-0.2); Basophils % (Auto) 1 % (0-2.5); Eosinophils # (Auto) 0.5 Thou/mm3 (0.0-0.5); Eosinophils % (Auto) 4 % (0-10); Hematocrit 40.1 % (36.0-46.0); Hemoglobin 13.3 g/dL (12.0-16.0); Immature Granulocytes Auto 0.04 Thou/mm3 (0.00-0.00); Lymphocytes # (Auto) 3.8 Thou/mm3 (1.0-4.8); Lymphocytes % (Auto) 29 % (10-50); Mean Corpuscular HGB Conc 33.2 g/dl (31.0-37.0); Mean Corpuscular Hemoglobin 28.7 pg (25.0-35.0); Mean Corpuscular Volume 87 fL (80-100); Monocytes # (Auto) 0.8 Thou/mm3 (0.0-0.8); Monocytes % (Auto) 6 % (0-12); Neutrophils # (Auto) 7.9 Thou/mm3 (1.8-7.7); Neutrophils % (Auto) 60 % (37-80); Nucleated Red Blood Cell # 0.00 Thou/mm3 (0.00-0.00); Nucleated Red Blood Cell % 0 /100 WBC (0); Platelet Count 506 Thou/mm3 (140-440); RDW Standard Deviation 41.8 fL (36.4-46.3); Red Blood Count 4.63 Miln/mm3 (4.00-5.20); White Blood Count 13.1 Thou/mm3 (3.6-11.0)
[2024-12-23 19:55] LABS: Bilirubin,Urine Negative (Negative); Blood,Urine Negative (Negative); Clarity,Urine Clear (Clear/Hazy); Color,Urine Lt-Yellow (Lt Yel-Yel); Culture Indicated,Urine Not Indicated; Glucose, Urine Negative (Negative); Ketones,Urine Negative (Negative); Leukocyte Esterase,Urine Negative (Negative); Nitrite,Urine Negative (Negative); PH,Urine 7.0 (5.0-7.0); Protein,Urine Negative (Neg - Trace); RBC,Urine 3 /hpf (0-3); Specific Gravity,Urine 1.014 (1.001-1.035); Squamous Epithelial Cell,Urine 2 /hpf (0-5); Urobilinogen,Urine Negative mg/dL (0.0-1.0); WBC,Urine < 1 /hpf (0-5)
[2024-12-23 19:57] LABS: HCG Qualitative,Urine Negative
[2024-12-23 20:08] LABS: INR 1.0 (0.9-1.3); Prothrombin Time 10.3 Seconds (9.0-12.2)
[2024-12-23 20:16] LABS: Alanine Aminotransferase 34 U/L (10-49); Albumin, Serum 4.7 gm/dL (3.5-5.0); Albumin/Globulin Ratio 1.6 (1.2-2.2); Alkaline Phosphatase 71 U/L (46-116); Anion Gap 6 (7-16); Aspartate Amino Transferase 30 U/L (0-34); BUN/Creatinine Ratio 9 Ratio (12-20); Bilirubin,Total 0.3 mg/dL (0.3-1.2); Blood Urea Nitrogen 9 mg/dL (9-23); Calcium 10.2 mg/dL (8.3-10.6); Calcium (Corrected) 10.2 mg/dL (8.5-10.1); Carbon Dioxide 26.7 mMol/L (20.0-31.0); Chloride 105 mMol/L (98-107); Creatinine (Component) 1.0 mg/dL (0.6-1.3); Estimated Creatinine Clearance 98.9 mL/min (>60); Globulin 3.0 gm/dL (2.3-3.5); Glucose 87 mg/dL (74-106); Lipase 30 U/L (12-53); Osmolality,Calculated 273 (275-295); Potassium 4.1 mMol/L (3.4-5.1); Sodium 138 mMol/L (136-145); Total Protein 7.7 gm/dL (5.7-8.2); eGFR > 60 See Note
[2024-12-23] MEDS: KETOROLAC INJ 30 MG/ML VIAL IM (21:46)
[2024-12-23 21:53] VITALS: BP 124/64; PULSE 84; RESP 18; TEMP 36.6; O2SAT 98
== END 2024-12-23 21:55 | disposition home or self-care (01) ==
PROVIDERS: Nurse Practitioner Family; Emergency Provider Emergency Medicine
DX: K62.5 Hemorrhage of anus and rectum (principal); N83.209 Unspecified ovarian cyst, unspecified side
CPT/HCPCS: 36415; 74177; 80053; 81001; 81025; 83690; 85025; 85610; 96372; 99283; A4649; J1885; Q9967